=== PATIENT | female | born 1935 | race Caucasian/White ===

== ENCOUNTER 2020-11-27 12:50 | Inpatient (IN) | payer MEDICARE, SELFPAY ==
[2020-11-27] VITALS (25 sets, daily range): BP systolic 83–146; BP diastolic 31–127; PULSE 77–798; RESP 11–20; TEMP 35.3–36.9; O2SAT 90–100; BMI 27.5; BMI 26.9
--- NOTE | 2020-11-27 13:21 | EX.ED.DYSGE1 ---
HPI History of Present Illness Chief Complaint: Neuro S/Sx Informant: patient Onset/Context/Timing Onset: Weeks (1) Timing: Continuous Location: Throat and chest Current Severity: Severe Maximum Severity: Severe Worsened by: Swallowing Relieved by: Nothing Narrative Narrative: Patient presents with difficulty swallowing for the past week. Patient states that 1 week ago she coughed up a blood clot. Patient states that since that time she has been having difficulty swallowing. Patient states she has been unable to swallow any liquids. Patient states she has been having some generalized weakness and having difficulty ambulating. Patient also admits to cramping in her hands. Patient states she has pain in her throat and chest with swallowing. [facility] Medical History (Updated 11/27/20 @ 16:[address] Sony Elias, DO) Fatty liver Home Medications NK 11/27/20 [History Last Taken Unknown] Allergy/AdvReac Type Severity Reaction Status Date / Time Penicillins [PCN] Allergy Other Verified 11/27/20 12:54 Surgical History (Updated 11/27/20 @ 13:58 by Tl Wiley) History of tubal ligation Social History Smoking Status: Former smoker ROS ROS ED Constitutional Constitutional ED: Reports chills and subjective; Denies fever(s) Eyes Eyes: Reports blurry vision; Denies diplopia ENT ENT ED: Reports sore throat; Denies rhinorrhea Cardiovascular Cardiovascular: Reports chest pain; Denies palpitations Respiratory/Chest Respiratory/Chest: Reports cough and dyspnea Gastrointestinal Gastrointestinal: Reports nausea and vomiting Genitourinary Genitourinary ED: Denies dysuria or hematuria Musculoskeletal Musculoskeletal: Reports back pain and neck pain Integumentary Reports rash; Denies abscess Neurologic Neurologic: Reports paresthesias and weakness Allergic/Immunologic Allergic/Immunologic ED: Denies mouth swelling or urticaria EXAM Physical Exam Const Vital Signs: 11/27/20 12:56 11/27/20 13:01 11/27/20 14:02 Temperature 98.4 F 98.4 F 98.4 F Temperature Source Oral Oral Oral Pulse Rate 101 H 101 H 92 Respiratory Rate 14 11 L 17 Blood Pressure 134/65 H 134/65 H 86/56 L Blood Pressure Mean 88 88 66 Pulse Ox 100 98 97 Oxygen Delivery Method Room Air Room Air Room Air 11/27/20 14:54 11/27/20 15:02 11/27/20 15:44 Temperature 97.7 F L 97.7 F L 96.5 F L Temperature Source Oral Oral Core Pulse Rate 91 90 90 Respiratory Rate 17 14 19 H Blood Pressure 114/75 114/75 87/37 L Blood Pressure Mean 88 88 53 Pulse Ox 94 94 96 Oxygen Delivery Method Room Air Room Air Room Air 11/27/20 16:23 Temperature 96.4 F L Temperature Source Core Pulse Rate 89 Respiratory Rate 17 Blood Pressure 95/51 L Blood Pressure Mean 65 Pulse Ox 95 Oxygen Delivery Method Room Air Positive cachectic General Appearance ED: cachectic Nutritional Appearance: cachectic Neck supple and no JVD Resp normal respiratory effort and clear to auscultation bilaterally Cardio regular rate and regular rhythm GI Inspection: abdominal distention Palpation: tender epigastric, LLQ, RLQ, LUQ and RUQ and guarding Extremity General Extremety ED: Yes edema General Extremity: edema Neuro oriented x3, CN's II-XII intact bilaterally and no sensory deficits noted Sensorium / Orientation: alert Motor Exam: strength 5/5 throughout Psych Mood & Affect: depressed and anxious MDM MDM MDM Narrative Medical decision making narrative: CBC showed a mild leukocytosis of 12.8. Hemoglobin was 6.7 and hematocrit was 22.7. PT was slightly elevated at 15.9 INR is 1.3. PTT was normal. BUN is 59 creatinine is 3.55. These were elevated compared to previous results from 2015. Lactate was elevated at 3.1. Urinalysis shows leukocyte esterase of 100 with 10-25 white blood cells and 4+ bacteria. CT scan of the chest, abdomen, pelvis was obtained. There is diffuse ascites. There is evidence of cirrhosis. This was interpreted by the radiologist and reviewed by myself. Blood cultures and urine culture were ordered. Patient blood pressure did drop to 87/37 here in the emergency department. Patient was given a 30 cc/kg bolus which is currently infusing. Patient was started on Rocephin. Case was discussed with the hospitalist. He will admit the patient to ICU. He recommended consulting surgery because of the anemia and cirrhosis. Case was discussed with Dr. Elias. Since the patient is not actively bleeding, he agrees to admit the patient here. I went back in and talked with the patient and discussed resuscitation options. She states that if her heart were to stop that we should just let her go and be with her . Lab Data Attestation: I reviewed the patient's lab results. Labs: Laboratory Results - last 24 hr 11/27/20 11/27/20 11/27/20 13:53 13:53 13:53 WBC 12.8 H RBC 2.75 L Hgb 6.7 L Hct 22.7 L MCV 82.5 MCH 24.4 L MCHC 29.5 L RDW Std Deviation 55.0 H RDW Coeff of Arielle 18.6 H Plt Count 265 MPV 9.8 Immature Gran % (Auto) 0.400 Neut % (Auto) 43.9 L Lymph % (Auto) 14.3 L [place] % (Auto) 10.3 H Eos % (Auto) 30.3 H Baso % (Auto) 0.8 Absolute Neuts (auto) 5.6 Absolute Lymphs (auto) 1.82 Nucleated RBC % 0 Differential Comment COMMENT Diff Path Review May foll PT 15.9 H INR 1.3 APTT 29.2 Sodium 142 Potassium 3.6 Chloride 108 H Carbon Dioxide 25.0 Anion Gap 9 BUN 59 H Creatinine 3.55 H Estim Creat Clear Calc 10.19 Est GFR (MDRD) Af Amer 16 L Est GFR (MDRD) Non-Af 13 L BUN/Creatinine Ratio 16.6 Glucose 130 H Lactic Acid Calcium 8.7 Total Bilirubin 0.50 AST 29 ALT 15 Alkaline Phosphatase 170 H Ammonia Total Protein 6.1 L Albumin 2.0 L Globulin 4.1 Albumin/Globulin Ratio 0.5 L Lipase 271 Urine Color Urine Clarity Urine pH Ur Specific [place] Urine Protein Urine Glucose (UA) Urine Ketones Urine Occult Blood Urine Nitrite Urine Bilirubin Urine Urobilinogen Ur Leukocyte Esterase Urine RBC Urine WBC Ur Squamous Epith Cells Urine Bacteria Urine Mucus Crossmatch 11/27/20 11/27/20 11/27/20 13:53 15:10 15:40 WBC RBC Hgb Hct MCV MCH MCHC RDW Std Deviation RDW Coeff of Arielle Plt Count MPV Immature Gran % (Auto) Neut % (Auto) Lymph % (Auto) [place] % (Auto) Eos % (Auto) Baso % (Auto) Absolute Neuts (auto) Absolute Lymphs (auto) Nucleated RBC % Differential Comment Diff Path Review PT INR APTT Sodium Potassium Chloride Carbon Dioxide Anion Gap BUN Creatinine Estim Creat Clear Calc Est GFR (MDRD) Af Amer Est GFR (MDRD) Non-Af BUN/Creatinine Ratio Glucose Lactic Acid 3.1 H* Calcium Total Bilirubin AST ALT Alkaline Phosphatase Ammonia Total Protein Albumin Globulin Albumin/Globulin Ratio Lipase Urine Color Yellow Urine Clarity Sl. Cloudy Urine pH 5.0 Ur Specific [place] 1.025 Urine Protein 15 H Urine Glucose (UA) Normal Urine Ketones Negative Urine Occult Blood Negative Urine Nitrite Negative Urine Bilirubin Negative Urine Urobilinogen Normal Ur Leukocyte Esterase 100 H Urine RBC 0 SEEN Urine WBC 10-25 SEEN Ur Squamous Epith Cells 0 SEEN Urine Bacteria 4+ Urine Mucus 0 SEEN Crossmatch See Detail 11/27/20 15:40 WBC RBC Hgb Hct MCV MCH MCHC RDW Std Deviation RDW Coeff of Arielle Plt Count MPV Immature Gran % (Auto) Neut % (Auto) Lymph % (Auto) [place] % (Auto) Eos % (Auto) Baso % (Auto) Absolute Neuts (auto) Absolute Lymphs (auto) Nucleated RBC % Differential Comment Diff Path Review PT INR APTT Sodium Potassium Chloride Carbon Dioxide Anion Gap BUN Creatinine Estim Creat Clear Calc Est GFR (MDRD) Af Amer Est GFR (MDRD) Non-Af BUN/Creatinine Ratio Glucose Lactic Acid Calcium Total Bilirubin AST ALT Alkaline Phosphatase Ammonia 43.0 H Total Protein Albumin Globulin Albumin/Globulin Ratio Lipase Urine Color Urine Clarity Urine pH Ur Specific [place] Urine Protein Urine Glucose (UA) Urine Ketones Urine Occult Blood Urine Nitrite Urine Bilirubin Urine Urobilinogen Ur Leukocyte Esterase Urine RBC Urine WBC Ur Squamous Epith Cells Urine Bacteria Urine Mucus Crossmatch Radiography Diagnostic Testing: Radiology Impression Chest/Abdomen/Pelvis CT 11/27/20 14:28 IMPRESSION: Diffuse ascites. Findings suggestive of cirrhosis. Electronically Signed: Arnulfo Ahmadi MD at 15:09 EDT , Service support , Treatment and Re-Evaluation Vital Sign Attestation:: At time of admission, patient's blood pressure was improving. Patient was still receiving 30 cc/kg bolus and blood. Critical Care Time Critical Care Time: Yes Critical care time (excluding procedures): 30-74 minutes, Discussing w/Patient &/or Family/Rag Inspector, Discussing w/Consultants, Arranging Admission or Transfer and Performing Direct Patient Care at Bedside Discharge Plan Dx/Rx/DC Orders Clinical Impression: Septic shock, Acute kidney injury, Anemia, Urinary tract infection, Cirrhosis of liver, Acute hepatic encephalopathy Disposition Disposition: Acute Care Hospital [facility]
[2020-11-27] MEDS: 0.9% Normal Saline 1,000 ML 1000 ML IV (13:56)
[2020-11-27 14:04] LABS: Absolute Lymphocyte Count 1.82 X10^3/uL (0.83-4.51); Absolute Neutrophil Count 5.6 X10^3/uL (2.0-7.7); Basophil% 0.8 % (0-1); Eosinophils% 30.3 % (0-5); Hematocrit 22.7 % (37-47); Hemoglobin 6.7 g/dL (12.0-15.0); Lymphocyte # 1.82 X10^3/ul (0.83-4.51); Lymphocyte % 14.3 % (19-41); Mean Corp Hgb Conc 29.5 g/dL (32-36); Mean Corpuscular Hgb 24.4 pg (27.0-32.0); Mean Corpuscular Volume 82.5 fL (81-99); Mean Platelet Vol. 9.8 fl (6.2-12.0); Monocyte# 1.32 X10^3/uL; Monocyte% 10.3 % (0-10); NRBC Flagged by Analyzer 0 % (0-5); Neutrophil # 5.61 X10^3/uL (2.7-7.7); Neutrophil % 43.9 % (47-70); POSITIVE DIFFERENTIAL YES; Platelet Count 265 K/mm3 (150-450); RBC Distribution Width CV 18.6 % (11.6-14.6); Red Blood Count 2.75 M/mm3 (4.2-5.4); White Blood Count 12.8 K/mm3 (4.4-11.0)
[2020-11-27 14:15] LABS: International Normalized Ratio 1.3; Prothrombin Time (Protime)PT. 15.9 SECONDS (11.7-14.9)
[2020-11-27 14:16] LABS: Partial Thromboplast Time 29.2 Seconds (24.1-36.2)
[2020-11-27 14:21] LABS: ALB/GLOB Ratio 0.5 RATIO (0.9-2.4); AST(SGOT) 29 U/L (15-37); Alanine Aminotransfer ALT/SGPT 15 U/L (13-56); Alkaline Phosphatase 170 U/L (45-117); Anion Gap 9 (5-15); BUN 59 mg/dL (7-18); BUN/Creat Ratio 16.6 RATIO (10-20); Calcium,Total 8.7 mg/dL (8.5-10.1); Chloride 108 mmol/L (98-107); Creatinine, Serum 3.55 mg/dL (0.55-1.02); EST Glomerular Filtration Rate 13 mL/min (>60); Est Glom Filt Rate - Afr Amer 16 mL/min (>60); Estimated Creatinine Clearance 10.19 ml/min; Globulin 4.1 g/dL (2.2-4.2); Glucose 130 mg/dL (74-106); Lipase 271 U/L (73-393); Potassium 3.6 mmol/L (3.5-5.1); Protein, Total 6.1 g/dL (6.4-8.2); Sodium Level 142 mmol/L (136-145)
--- NOTE | 2020-11-27 14:28 | CT_ITS ---
STUDY: CT CHEST, ABDOMEN T PELVIS WITHOUT CONTRAST REASON FOR EXAM: Female, 85 years old. Chest pain. Dysphasia. Hemoptysis last week. RADIATION DOSAGE (If Supplied By Facility): CTDIvol = ( 20.81 ) mGy, DLP = ( 1755.96 ) mGycm TECHNIQUE: Transaxial imaging was performed without the administration of intravenous contrast material. Individualized dose optimization techniques were used for this CT. COMPARISON: No relevant priors. FINDINGS: CHEST Mild increased markings at the lung bases suggestive of atelectasis and/or scarring. Mild degree of the mosaic groundglass appearance in the lungs with focal area of sparing in the medial aspect of the left upper lobe. This may represent changes secondary to possible vascular congestion. There is no demonstrated pleural abnormality. There are calcifications of the coronary arteries. There are multiple small lymph nodes within the mediastinum, which are normal in size and morphology most compatible with reactive lymph hyperplasia. Normal hilar regions. Normal unenhanced pulmonary arteries. There is atherosclerotic calcification of the aortic arch with tortuosity and elongation of the aortic arch and descending thoracic aorta. There are multi-level degenerative changes of the thoracic spine. Increased kyphosis. Perisplenic and perihepatic fluid. Findings suggestive of cirrhosis of the liver. ABDOMEN Mild degree of increased markings at the lung bases. Coronary artery calcification. Diffuse ascites. There is a diffuse contour abnormality of the liver consistent with cirrhotic changes. Perihepatic and perisplenic fluid. Mild distention of the gallbladder. Normal spleen. There is diffuse atrophy of the pancreas. Normal bilateral adrenal glands. Normal right kidney. Normal left kidney. Normal visualized stomach. Normal small intestine. Normal colon. The appendix is visualized and appears normal. There is diffuse atherosclerotic calcification of the abdominal aorta, without a demonstrated aneurysm. Normal inferior vena cava. Normal retroperitoneum. Normal abdominal wall. There are diffuse degenerative changes of the visualized lumbar spine. PELVIS Normal urinary bladder. Diffuse ascites. Normal visualized small intestine. There are multiple colonic diverticula of the sigmoid colon consistent with chronic diverticulosis. There is no pelvic fluid. There is no pelvic lymphadenopathy or mass lesion. There is diffuse atherosclerotic calcification of the pelvic arteries. Diffuse subcutaneous edema. There are diffuse degenerative changes of the visualized lumbar spine. Osteoarthritis of both hip joints. CT/CT Chest, Abd, Pelvis WO Cont IMPRESSION: Diffuse ascites. Findings suggestive of cirrhosis. Electronically Signed: Arnulfo Ahmadi MD at 15:09 EDT , Service support ,
[2020-11-27 14:29] LABS: Differential Indicated SCAN CRITERIA MET; Eosinophil# 3.87 X10^3/uL
[2020-11-27 14:54] LABS: Lactic Acid 3.1 mmol/L (0.4-1.9)
[2020-11-27] MEDS: DiphenhydrAMINE 50 MG/ML Syringe 25 MG IV (14:56)
[2020-11-27 15:14] LABS: Mucous, Urine 0 SEEN /hpf (<or=2+); Red Blood Cells-Urine 0 SEEN /hpf (0-5); Squamous Epithelial Cells - UA 0 SEEN /hpf (5-10)
[2020-11-27 15:20] LABS: Color, Urine Yellow (Yellow); Glucose, Dipstick Normal (Normal); Ketone-Dipstick Negative (Negative); Leukocyte Esterase-Dipstick 100 /ul (Negative); Nitrite-Dipstick Negative (Negative); Occult Blood-Urine Negative /ul (Negative); Protein-Dipstick 15 mg/dl (Negative); Specific Gravity, Urine 1.025 (1.002-1.030); Urine Bilirubin Dipstick Negative (Negative); Urine Clarity Sl. Cloudy (Clear); Urine Urobilinogen Normal (Normal)
[2020-11-27 15:38] LABS: Bacteria 4+ /hpf (None Seen); White Blood Cells 10-25 SEEN /hpf (0-5)
[2020-11-27] MEDS: 0.9% Normal Saline 1,000 ML 999 ML IV (16:18)
--- NOTE | 2020-11-27 16:27 | NURSING ---
DR TANNER FOR DR JACKSON
--- NOTE | 2020-11-27 16:49 | NURSING ---
ICU 3 ASHELFAH SEPTIC SHOCK, UTI, ANEMIA, CIRRHOSIS, HEPATIC ENCEPHALOPATHY
[2020-11-27] MEDS: Ceftriaxone 1 GM/50 ML BAG IV (16:55)
[2020-11-27] MEDS: Lactulose 20 GM/30 ML UDC 10 GM PO (16:56)
--- NOTE | 2020-11-27 17:11 | HP.PCM.HOS_ITS ---
[facility] - General General Date of Admission: 11/27/20 Chief Complaint: Difficulty swallowing, weakness [facility] Narrative ALYSSIA GUO, is a 85 F with past medical history as mentioned above presented to the emergency room because of difficulty swallowing and weakness. Patient is a very poor informant and was not able to provide good history. She mentioned that she came to the ER today because of difficulty swallowing. She was not able to provide details about onset and duration of her symptoms. She complained of weakness of both upper extremities. She denied cough or sputum production. She denied chest pain or shortness of breath. She reported to the ER physician that she coughed up a blood clot 1 week ago and since then, she has been having this difficulty swallowing. She complained of throat pain along with the difficulty swallowing. She stated that she does have history of type 2 diabetes and she used to be on Metformin but she is not taking her medication nowadays. In the emergency department, she was afebrile, hypotensive but improved with IV fluids and her pulse ox was 96% on room air. Her routine blood work was remarkable for mild leukocytosis, hemoglobin of 6.7 g/dL, BUN is 59, creatinine is 2.55. LFT remarkable for alk phos of 170. Lactic acid 3.1. Urinalysis with cloudy urine, there was 100 leukocyte esterase, 10-25 WBCs and 4+ bacteria. CT scan abdomen and pelvis without contrast revealed diffuse ascites and findings suggestive of liver cirrhosis. Initially, patient was hypotensive, received IV fluids and her blood pressure improved. She is being admitted for severe sepsis due to UTI, severe anemia and acute renal failure. [facility] Medical History (Updated 11/27/20 @ 17:[address] Ward Craig MD) Fatty liver Home Medications NK 11/27/20 [History Last Taken Unknown] Allergy/AdvReac Type Severity Reaction Status Date / Time Penicillins [PCN] Allergy Other Verified 11/27/20 12:54 no significant family history Surgical History (Updated 11/27/20 @ 13:58 by Tl Wiley) History of tubal ligation Social History (Updated 11/27/20 @ 17:[address] Ward Craig MD) household members: none housing: other Smoking Status: Former smoker alcohol intake: never substance use type: does not use ROS Constitutional Constitutional: Reports anorexia and weakness; Denies chills, fatigue, fever(s) or malaise Eyes Eyes: Denies blurry vision, change in eye color, change in vision, double vision or eye pain ENT HEENT: Denies ear pain, epistaxis, headache(s), nasal congestion, post nasal drip or sore throat Cardiovascular Cardiovascular: Denies chest pain, dyspnea on exertion, edema, lightheadedness, orthopnea, palpitations, paroxysmal nocturnal dyspnea or syncope Respiratory/Chest Respiratory/Chest: Denies cough, dyspnea, hemoptysis, productive cough, shortness of breath at rest, shortness of breath with exertion or wheezing Gastrointestinal Gastrointestinal: Denies abdominal pain, constipation, diarrhea, hematemesis, hematochezia, melena, nausea or vomiting Genitourinary Genitourinary: Denies burning urination, dysuria, hematuria, urinary hesitancy or urinary urgency Musculoskeletal Musculoskeletal: Denies arthralgias, back pain, joint pain, joint swelling, myalgias or neck pain Neurologic Neurologic: Denies confusion, dizziness, focal weakness, headache(s), numbness, paresthesias, seizures, tingling or tremor(s) Psychiatric Psychiatric: Denies anxiety, depression, homicidal ideation or suicidal ideation Endocrine Endocrinology: Denies change in body appearance, cold intolerance, heat intolerance, polydipsia or polyuria Hematologic/Lymphatic Hematologic/Lymphatic: Reports other; Denies easy bleeding, easy bruising or lymphadenopathy Allergic/Immunologic Allergic/Immunologic: Denies itchy eyes, rhinitis, throat swelling, tongue swelling, hives, urticaria or wheezing Vital Signs Vital Signs Vital Signs: 11/27/20 12:56 11/27/20 13:01 11/27/20 14:02 Temperature 98.4 F 98.4 F 98.4 F Temperature Source Oral Oral Oral Pulse Rate 101 H 101 H 92 Respiratory Rate 14 11 L 17 Blood Pressure 134/65 H 134/65 H 86/56 L Blood Pressure Mean 88 88 66 Pulse Ox 100 98 97 Oxygen Delivery Method Room Air Room Air Room Air 11/27/20 14:54 11/27/20 15:02 11/27/20 15:44 Temperature 97.7 F L 97.7 F L 96.5 F L Temperature Source Oral Oral Core Pulse Rate 91 90 90 Respiratory Rate 17 14 19 H Blood Pressure 114/75 114/75 87/37 L Blood Pressure Mean 88 88 53 Pulse Ox 94 94 96 Oxygen Delivery Method Room Air Room Air Room Air 11/27/20 16:23 Temperature 96.4 F L Temperature Source Core Pulse Rate 88 Respiratory Rate 15 Blood Pressure 95/51 L Blood Pressure Mean 65 Pulse Ox 96 Oxygen Delivery Method Room Air Physical Exam Const alert, oriented x3 and no apparent distress General Appearance: cooperative HEENT normocephalic, head/scalp atraumatic and moist oral mucous membranes Mouth: moist mucous membranes abnormal Eyes PERRL, EOMs intact bilaterally and conjunctivae normal Neck no lymphadenopathy, supple, no JVD and no carotid bruits Resp normal respiratory effort and clear to auscultation bilaterally Auscultation: Negative for crackles, rales, rhonchi or wheezes Cardio regular rate, regular rhythm, S1 normal heart sound, S2 normal heart sound, no murmurs and no JVD Peripheral Pulses: pulses 2+ throughout GI normal to inspection, nondistended, normoactive bowel sounds, soft to palpation, non-tender and non-distended; Negative for hepatosplenomegaly Extremity normal to inspection and full ROM General Extremity: edema Peripheral Pulses: Yes pulses 2+ throughout Skin no rashes or lesions noted and no wounds Neuro oriented x3 and CN's II-XII intact bilaterally Sensorium / Orientation: alert Speech: speech normal Motor Exam: strength 5/5 throughout Psych mental status grossly normal and affect normal Lab / Micro Data Result Diagrams: 11/27/20 13:53 11/27/20 13:53 Labs: Laboratory Results - last 24 hr 11/27/20 11/27/20 11/27/20 13:53 13:53 13:53 WBC 12.8 H RBC 2.75 L Hgb 6.7 L Hct 22.7 L MCV 82.5 MCH 24.4 L MCHC 29.5 L RDW Std Deviation 55.0 H RDW Coeff of Arielle 18.6 H Plt Count 265 MPV 9.8 Immature Gran % (Auto) 0.400 Neut % (Auto) 43.9 L Lymph % (Auto) 14.3 L [place] % (Auto) 10.3 H Eos % (Auto) 30.3 H Baso % (Auto) 0.8 Absolute Neuts (auto) 5.6 Absolute Lymphs (auto) 1.82 Nucleated RBC % 0 Differential Comment COMMENT Diff Path Review May foll PT 15.9 H INR 1.3 APTT 29.2 Sodium 142 Potassium 3.6 Chloride 108 H Carbon Dioxide 25.0 Anion Gap 9 BUN 59 H Creatinine 3.55 H Estim Creat Clear Calc 10.19 Est GFR (MDRD) Af Amer 16 L Est GFR (MDRD) Non-Af 13 L BUN/Creatinine Ratio 16.6 Glucose 130 H Lactic Acid Calcium 8.7 Total Bilirubin 0.50 AST 29 ALT 15 Alkaline Phosphatase 170 H Ammonia Total Protein 6.1 L Albumin 2.0 L Globulin 4.1 Albumin/Globulin Ratio 0.5 L Lipase 271 Urine Color Urine Clarity Urine pH Ur Specific [place] Urine Protein Urine Glucose (UA) Urine Ketones Urine Occult Blood Urine Nitrite Urine Bilirubin Urine Urobilinogen Ur Leukocyte Esterase Urine RBC Urine WBC Ur Squamous Epith Cells Urine Bacteria Urine Mucus Crossmatch 11/27/20 11/27/20 11/27/20 13:53 15:10 15:40 WBC RBC Hgb Hct MCV MCH MCHC RDW Std Deviation RDW Coeff of Arielle Plt Count MPV Immature Gran % (Auto) Neut % (Auto) Lymph % (Auto) [place] % (Auto) Eos % (Auto) Baso % (Auto) Absolute Neuts (auto) Absolute Lymphs (auto) Nucleated RBC % Differential Comment Diff Path Review PT INR APTT Sodium Potassium Chloride Carbon Dioxide Anion Gap BUN Creatinine Estim Creat Clear Calc Est GFR (MDRD) Af Amer Est GFR (MDRD) Non-Af BUN/Creatinine Ratio Glucose Lactic Acid 3.1 H* Calcium Total Bilirubin AST ALT Alkaline Phosphatase Ammonia Total Protein Albumin Globulin Albumin/Globulin Ratio Lipase Urine Color Yellow Urine Clarity Sl. Cloudy Urine pH 5.0 Ur Specific [place] 1.025 Urine Protein 15 H Urine Glucose (UA) Normal Urine Ketones Negative Urine Occult Blood Negative Urine Nitrite Negative Urine Bilirubin Negative Urine Urobilinogen Normal Ur Leukocyte Esterase 100 H Urine RBC 0 SEEN Urine WBC 10-25 SEEN Ur Squamous Epith Cells 0 SEEN Urine Bacteria 4+ Urine Mucus 0 SEEN Crossmatch See Detail 11/27/20 15:40 WBC RBC Hgb Hct MCV MCH MCHC RDW Std Deviation RDW Coeff of Arielle Plt Count MPV Immature Gran % (Auto) Neut % (Auto) Lymph % (Auto) [place] % (Auto) Eos % (Auto) Baso % (Auto) Absolute Neuts (auto) Absolute Lymphs (auto) Nucleated RBC % Differential Comment Diff Path Review PT INR APTT Sodium Potassium Chloride Carbon Dioxide Anion Gap BUN Creatinine Estim Creat Clear Calc Est GFR (MDRD) Af Amer Est GFR (MDRD) Non-Af BUN/Creatinine Ratio Glucose Lactic Acid Calcium Total Bilirubin AST ALT Alkaline Phosphatase Ammonia 43.0 H Total Protein Albumin Globulin Albumin/Globulin Ratio Lipase Urine Color Urine Clarity Urine pH Ur Specific [place] Urine Protein Urine Glucose (UA) Urine Ketones Urine Occult Blood Urine Nitrite Urine Bilirubin Urine Urobilinogen Ur Leukocyte Esterase Urine RBC Urine WBC Ur Squamous Epith Cells Urine Bacteria Urine Mucus Crossmatch Micro: Microbiology 11/27/20 13:50 SARS-CoV-2 Antigen (Rapid) - Final Nasal Secretion Radiology Impression Chest/Abdomen/Pelvis CT 11/27/20 14:28 IMPRESSION: Diffuse ascites. Findings suggestive of cirrhosis. Electronically Signed: Arnulfo Ahmadi MD at 15:09 EDT , Service support , Assessment & Plan Assessment/Plan (1) Severe sepsis: Status: Acute Code(s): A41.9 - Sepsis, unspecified organism; R65.20 - Severe sepsis without septic shock (2) Acute kidney injury: Status: Acute Code(s): N17.9 - Acute kidney failure, unspecified (3) Anemia: Status: Acute Code(s): D64.9 - Anemia, unspecified (4) Urinary tract infection: Status: Acute Code(s): N39.0 - Urinary tract infection, site not specified (5) Cirrhosis of liver: Status: Acute Code(s): K74.60 - Unspecified cirrhosis of liver Plan: This is a 85 years old female patient presented to the medicine because of diff erent complaints including difficulty swallowing, weakness and she was found to have severe sepsis secondary to acute cystitis as well as acute anemia and acute renal failure, found to have liver cirrhosis on CT scan abdomen and her ammonia is elevated. #1 severe sepsis/acute cystitis: Lactic acid 3.1. Patient was hypotensive, responded to IV fluids and her blood pressure improved. Plan: Admit to ICU, complete bedrest, blood culture, urine culture, start IV Rocephin, IV fluids, critical care consult, Tylenol as needed, Zofran as needed, repeat CBC and CMP tomorrow morning, PT OT evaluation and treatment. #2 acute renal failure: Likely due to severe sepsis. Only kidney function for the patient in the chart was from June,, creatinine was 0.77. Plan: IV fluids, input output chart, avoid nephrotoxic drugs, repeat CMP tomorrow morning. #3 acute severe anemia: Patient denied active bleeding. It is normocytic anemia. Hemoglobin was 11.7 on June,. Plan: Transfused treatment of packed RBCs, iron studies, serum ferritin, stool for occult blood, general surgery consult, start IV Protonix twice daily, repeat CBC tomorrow morning. #4 liver cirrhosis/hyperammonemia: Patient denies drinking alcohol. CT scan abdomen and pelvis reviewed as above. She is alert and related x3. She does have diffuse ascites. Plan: Start lactulose twice daily, patient will need foll ow-up with GI as outpatient. #5 difficulty swallowing: Plan for speech therapy evaluation and treatment. #6 history of type 2 diabetes mellitus: She stated that she had a history of type 2 diabetes mellitus has been on Metformin but she is not taking it since her . Plan: Accu-Cheks, sliding scale, check hemoglobin A1c. # 7 CODE STATUS: DNR CCA, no intubation. I discussed the different types of CODE STATUS with the patient including full code, DNR CC, DNR CCA with and without intubation. Patient clearly mentioned that she does not want any life- sustaining measures, no CPR, no chest compressions, no intubation and mechanical ventilation. #8 DVT prophylaxis: SCDs. This note was generated with [employer] dictation software. It may contain incorrect words, spelling, and punctuation that were not noted in checking the note before signing. Inpatient E&M: 36828 Init Hosp L3 Procedures: 23900 Advncd Care Plan 30 Min (Time spent discussing CODE STATUS with the patient is 12 minutes.)
--- NOTE | 2020-11-27 17:57 | ED.RN ---
called report to [facility]
[2020-11-27 18:00] LABS: Reflex Lactate? Y
--- NOTE | 2020-11-27 19:15 | NURSING ---
pt arrived to ICU room 3 from ED with PRBC running wide open. Pt A&Ox3 with some abd discomfort.
[2020-11-27 19:46] LABS: Iron Binding Capacity,Total 271 ug/dL (250-450)
[2020-11-27 19:55] LABS: Ferritin 18 ng/mL (8-252)
--- NOTE | 2020-11-27 20:23 | US_ITS ---
STUDY: ABDOMINAL ULTRASOUND REASON FOR EXAM: Female, 85 years old. ASCITES TECHNIQUE: Transabdominal ultrasound was performed with real-time and static jarvis scale imaging. TECHNICAL QUALITY: Limited. Examination limited due to the patient?s condition. COMPARISON: Comparison is made with prior CT scan of the abdomen done earlier today. FINDINGS: Liver: The liver measures 13.9 cm. There is normal echogenicity of the liver. The bile ducts are within normal limits. There is hepatic color flow. The direction of portal flow is hepatopetal. There is no demonstrated mass lesion. Portal vein measurement: Gallbladder: Normal distended gallbladder. The gallbladder wall measures 4 mm. There is a negative sonographic Dunn''s sign. There is pericholecystic fluid. Sludge is seen within the gallbladder lumen. Common Bile Duct (C.B.D.): The common bile duct measures 4 mm. Pancreas: There is nonvisualization of the pancreas due to overlying bowel gas. Spleen: Normal size of the spleen. The spleen measures 12.1 cm x 4.8 cm x 4.9 cm. Right Kidney: There is atrophy of the right kidney. The right kidney measures 6.1 cm x 4.4 cm x 3.2 cm. There is thinning of the renal cortex. The right cortex measures 0.6 cm. There is no demonstrated renal mass or cyst. There is no right hydronephrosis. Left Kidney: Normal size of the left kidney. The left kidney measures 9 cm x 4.7 cm x 4.6 cm. Normal renal cortex. The left cortex measures 1.0 cm. There is no demonstrated renal mass or cyst. There is no left hydronephrosis. Aorta: Not visualized Diffuse ascites US/Abdomen Complete IMPRESSION: Diffuse ascites. Electronically Signed: Arnulfo Ahmadi MD at 8:16 EDT , Service support ,
--- NOTE | 2020-11-27 20:40 | ED.RN ---
pt given 2 liters of fluid for fluid resuscitation protocol for 30ml per kg. pt should receive 2100ml.
[2020-11-27 20:43] LABS: Hemoglobin A1c < 6.0 % (3.8-5.6)
[2020-11-27 22:55] LABS: Bedside Glucose 101 mg/dL (70-110)
[2020-11-27] MEDS: Lactulose 20 GM/30 ML UDC PO (23:25)
[2020-11-28] VITALS (16 sets, daily range): BP systolic 99–116; BP diastolic 31–57; PULSE 81–98; RESP 14–22; TEMP 36.2–37.2; O2SAT 93–100
[2020-11-28] MEDS: 0.9% Normal Saline 1,000 ML 100 ML IV (00:15)
[2020-11-28] MEDS: Furosemide 20 MG/2 ML VIAL IV ×3 (01:19→18:19)
[2020-11-28] MEDS: 0.9% Saline Lock 10 ML Syringe IV (01:20)
[2020-11-28 04:24] LABS: Absolute Lymphocyte Count 1.21 X10^3/uL (0.83-4.51); Absolute Neutrophil Count 4.6 X10^3/uL (2.0-7.7); Basophil# 0.09 X10^3/uL; Basophil% 0.9 % (0-1); Eosinophils% 28.8 % (0-5); Hematocrit 29.6 % (37-47); Hemoglobin 9.4 g/dL (12.0-15.0); Lymphocyte # 1.21 X10^3/ul (0.83-4.51); Lymphocyte % 12.4 % (19-41); Mean Corp Hgb Conc 31.8 g/dL (32-36); Mean Corpuscular Hgb 26.8 pg (27.0-32.0); Mean Corpuscular Volume 84.3 fL (81-99); Mean Platelet Vol. 9.2 fl (6.2-12.0); Monocyte% 10.3 % (0-10); NRBC Flagged by Analyzer 0 % (0-5); Neutrophil # 4.61 X10^3/uL (2.7-7.7); Neutrophil % 47.3 % (47-70); POSITIVE DIFFERENTIAL YES; Platelet Count 177 K/mm3 (150-450); RBC Distribution Width CV 16.7 % (11.6-14.6); RBC Distribution Width SD 51.3 fl (35.1-43.9); Red Blood Count 3.51 M/mm3 (4.2-5.4); White Blood Count 9.8 K/mm3 (4.4-11.0)
[2020-11-28 04:29] LABS: Eosinophil# 2.81 X10^3/uL
[2020-11-28 04:30] LABS: Differential Indicated SCAN CRITERIA MET
[2020-11-28 04:35] LABS: International Normalized Ratio 1.4; Prothrombin Time (Protime)PT. 16.3 SECONDS (11.7-14.9)
[2020-11-28 04:44] LABS: ALB/GLOB Ratio 0.5 RATIO (0.9-2.4); AST(SGOT) 29 U/L (15-37); Alanine Aminotransfer ALT/SGPT 11 U/L (13-56); Albumin, Serum 1.7 g/dL (3.2-5.0); Alkaline Phosphatase 126 U/L (45-117); Anion Gap 7 (5-15); BUN 55 mg/dL (7-18); BUN/Creat Ratio 17.2 RATIO (10-20); Calcium,Total 7.9 mg/dL (8.5-10.1); Chloride 111 mmol/L (98-107); EST Glomerular Filtration Rate 15 mL/min (>60); Est Glom Filt Rate - Afr Amer 18 mL/min (>60); Globulin 3.7 g/dL (2.2-4.2); Glucose 92 mg/dL (74-106); Potassium 3.4 mmol/L (3.5-5.1); Protein, Total 5.4 g/dL (6.4-8.2); Sodium Level 143 mmol/L (136-145)
[2020-11-28 04:50] LABS: Differential Comment SCANNED
[2020-11-28 04:51] LABS: Lactic Acid 1.8 mmol/L (0.4-1.9)
[2020-11-28] MEDS: 0.9% Normal Saline 1,000 ML IV (06:27)
--- NOTE | 2020-11-28 06:47 | CON.PCM.SX_ITS ---
Assessment & Plan Assessment/Plan (1) Anemia: Status: Acute Code(s): D64.9 - Anemia, unspecified Qualifiers: Anemia type: unspecified type Qualified Code(s): D64.9 - Anemia, unspecified (2) Cirrhosis of liver: Status: Acute Code(s): K74.60 - Unspecified cirrhosis of liver Qualifiers: Hepatic cirrhosis type: unspecified hepatic cirrhosis Ascites presence: with ascites Qualified Code(s): K74.60 - Unspecified cirrhosis of liver; R18.8 - Other ascites Plan: The patient presented with anemia and a hemoglobin of 6 with no iron deficiency. The patient reports that she did cough up blood clot recently but she is not having any gross blood in her stool. She had a normal bowel movement overnight with no blood. Patient is also Hemoccult positive. The patient was admitted for sepsis and UTI. I reviewed the patient's CT scan which shows diffuse ascites and evidence of a cirrhotic liver. The patient's liver enzymes are normal and she is alert and oriented x3 although she does have a very elevated ammonia level. The patient's anemia and positive fecal occult blood are likely due to gastritis and she has been started on a PPI. Given her age and cirrhosis I think an EGD would be very high risk. The patient needs to establish care with a GI doctor due to her cir rhosis and I believe the GI doctor should perform EGD. Unless she starts having gross blood and hemoglobin is unstable I would recommend that the EGD be performed by GI doctor electively. If she is unable to tolerate a diet or if she has active GI bleeding such as melena or coffee-ground emesis I would perform an EGD emergently. Continue PPI and okay for diet from my standpoint. Continue checking H&H. Meño Elias MD Pager: [facility] [address] [place] [address], [address] [place] [address] Office: HPI Consult Data Date of Consult: 11/28/20 HPI Narrative HPI Narrative: ALYSSIA GUO, is a 85 F who presents to the emergency room with anemia, abdominal distention. The patient has not noticed any gross blood in her stool. She does not know that she has cirrhosis and says that she has a fatty liver. She is not complaining of any abdominal pain. She reports that she spit up a blood clot about a week ago. She is not having any nausea or vomiting. She did describe some difficulty swallowing. She feels very itchy and is scratching so much that she is bleeding. [facility] Medical History (Updated 11/28/20 @ 06:[address] Meño Elias MD) Fatty liver Home Medications NK 11/27/20 [History Last Taken Unknown] Allergy/AdvReac Type Severity Reaction Status Date / Time Penicillins [PCN] Allergy Other Verified 11/27/20 12:54 Surgical History (Updated 11/27/20 @ 13:58 by Tl Wiley) History of tubal ligation Social History (Updated 11/27/20 @ 17:[address] Ward Craig MD) household members: none housing: other Smoking Status: Former smoker alcohol intake: never substance use type: does not use ROS Constitutional Constitutional: Reports chills; Denies anorexia or fatigue ENT HEENT: Reports dysphagia Respiratory/Chest Respiratory/Chest: Denies cough or dyspnea Gastrointestinal Gastrointestinal: Reports bloating and dysphagia; Denies abdominal pain, diarrhea, hematemesis, hematochezia, melena, nausea, rectal bleeding or vomiting Musculoskeletal Musculoskeletal: Reports systems reviewed and no addt'l complaints, except as documented Integumentary Integumentary: Reports other Details: Severe itching Psychiatric Psychiatric: Reports systems reviewed and no addt'l complaints, except as documented Hematologic/Lymphatic Hematologic/Lymphatic: Reports systems reviewed and no addt'l complaints, except as documented Physical Exam Const alert and oriented x3 General Appearance: cooperative HEENT normocephalic Eyes PERRL Neck no JVD Chest inspection of chest normal Resp normal respiratory effort Cardio Rate: regular rate Rhythm: regular rhythm GI Inspection: abdominal distention Palpation: ascites; Negative for tender or guarding Skin no jaundice Skin Narrative: The patient has several areas of bleeding on her skin due to scratching herself because of severe itching Neuro CN's II-XII intact bilaterally Lab / Micro Data Result Diagrams: 11/28/20 04:15 11/28/20 04:15 Labs: Laboratory Results - last 24 hr 11/27/20 11/27/20 11/27/20 13:53 13:53 13:53 WBC 12.8 H RBC 2.75 L Hgb 6.7 L Hct 22.7 L MCV 82.5 MCH 24.4 L MCHC 29.5 L RDW Std Deviation 55.0 H RDW Coeff of Arielle 18.6 H Plt Count 265 MPV 9.8 Immature Gran % (Auto) 0.400 Neut % (Auto) 43.9 L Lymph % (Auto) 14.3 L [place] % (Auto) 10.3 H Eos % (Auto) 30.3 H Baso % (Auto) 0.8 Absolute Neuts (auto) 5.6 Absolute Lymphs (auto) 1.82 Nucleated RBC % 0 Differential Comment COMMENT Diff Path Review May foll PT 15.9 H INR 1.3 APTT 29.2 Sodium 142 Potassium 3.6 Chloride 108 H Carbon Dioxide 25.0 Anion Gap 9 BUN 59 H Creatinine 3.55 H Estim Creat Clear Calc 10.19 Est GFR (MDRD) Af Amer 16 L Est GFR (MDRD) Non-Af 13 L BUN/Creatinine Ratio 16.6 Glucose 130 H Hemoglobin A1c Lactic Acid Calcium 8.7 TIBC Ferritin Total Bilirubin 0.50 AST 29 ALT 15 Alkaline Phosphatase 170 H Ammonia Total Protein 6.1 L Albumin 2.0 L Globulin 4.1 Albumin/Globulin Ratio 0.5 L Lipase 271 Urine Color Urine Clarity Urine pH Ur Specific [place] Urine Protein Urine Glucose (UA) Urine Ketones Urine Occult Blood Urine Nitrite Urine Bilirubin Urine Urobilinogen Ur Leukocyte Esterase Urine RBC Urine WBC Ur Squamous Epith Cells Urine Bacteria Urine Mucus POC Glucose Blood Type Antibody Screen Crossmatch 11/27/20 11/27/20 11/27/20 13:53 13:53 13:53 WBC RBC Hgb Hct MCV MCH MCHC RDW Std Deviation RDW Coeff of Arielle Plt Count MPV Immature Gran % (Auto) Neut % (Auto) Lymph % (Auto) [place] % (Auto) Eos % (Auto) Baso % (Auto) Absolute Neuts (auto) Absolute Lymphs (auto) Nucleated RBC % Differential Comment Diff Path Review PT INR APTT Sodium Potassium Chloride Carbon Dioxide Anion Gap BUN Creatinine Estim Creat Clear Calc Est GFR (MDRD) Af Amer Est GFR (MDRD) Non-Af BUN/Creatinine Ratio Glucose Hemoglobin A1c < 6.0 H Lactic Acid 3.1 H* Calcium TIBC 271 Ferritin Total Bilirubin AST ALT Alkaline Phosphatase Ammonia Total Protein Albumin Globulin Albumin/Globulin Ratio Lipase Urine Color Urine Clarity Urine pH Ur Specific [place] Urine Protein Urine Glucose (UA) Urine Ketones Urine Occult Blood Urine Nitrite Urine Bilirubin Urine Urobilinogen Ur Leukocyte Esterase Urine RBC Urine WBC Ur Squamous Epith Cells Urine Bacteria Urine Mucus POC Glucose Blood Type Antibody Screen Crossmatch 11/27/20 11/27/20 11/27/20 13:53 15:10 15:40 WBC RBC Hgb Hct MCV MCH MCHC RDW Std Deviation RDW Coeff of Arielle Plt Count MPV Immature Gran % (Auto) Neut % (Auto) Lymph % (Auto) [place] % (Auto) Eos % (Auto) Baso % (Auto) Absolute Neuts (auto) Absolute Lymphs (auto) Nucleated RBC % Differential Comment Diff Path Review PT INR APTT Sodium Potassium Chloride Carbon Dioxide Anion Gap BUN Creatinine Estim Creat Clear Calc Est GFR (MDRD) Af Amer Est GFR (MDRD) Non-Af BUN/Creatinine Ratio Glucose Hemoglobin A1c Lactic Acid Calcium TIBC Ferritin 18 Total Bilirubin AST ALT Alkaline Phosphatase Ammonia Total Protein Albumin Globulin Albumin/Globulin Ratio Lipase Urine Color Yellow Urine Clarity Sl. Cloudy Urine pH 5.0 Ur Specific [place] 1.025 Urine Protein 15 H Urine Glucose (UA) Normal Urine Ketones Negative Urine Occult Blood Negative Urine Nitrite Negative Urine Bilirubin Negative Urine Urobilinogen Normal Ur Leukocyte Esterase 100 H Urine RBC 0 SEEN Urine WBC 10-25 SEEN Ur Squamous Epith Cells 0 SEEN Urine Bacteria 4+ Urine Mucus 0 SEEN POC Glucose Blood Type O NEGATIVE Antibody Screen NEGATIVE Crossmatch See Detail 11/27/20 11/27/20 11/27/20 15:40 15:40 22:49 WBC RBC Hgb Hct MCV MCH MCHC RDW Std Deviation RDW Coeff of Arielle Plt Count MPV Immature Gran % (Auto) Neut % (Auto) Lymph % (Auto) [place] % (Auto) Eos % (Auto) Baso % (Auto) Absolute Neuts (auto) Absolute Lymphs (auto) Nucleated RBC % Differential Comment Diff Path Review PT INR APTT Sodium Potassium Chloride Carbon Dioxide Anion Gap BUN Creatinine Estim Creat Clear Calc Est GFR (MDRD) Af Amer Est GFR (MDRD) Non-Af BUN/Creatinine Ratio Glucose Hemoglobin A1c Lactic Acid Calcium TIBC Ferritin Total Bilirubin AST ALT Alkaline Phosphatase Ammonia 43.0 H Total Protein Albumin Globulin Albumin/Globulin Ratio Lipase Urine Color Urine Clarity Urine pH Ur Specific [place] Urine Protein Urine Glucose (UA) Urine Ketones Urine Occult Blood Urine Nitrite Urine Bilirubin Urine Urobilinogen Ur Leukocyte Esterase Urine RBC Urine WBC Ur Squamous Epith Cells Urine Bacteria Urine Mucus POC Glucose 101 Blood Type Antibody Screen Crossmatch See Detail 11/28/20 11/28/20 11/28/20 04:15 04:15 04:15 WBC 9.8 RBC 3.51 L Hgb 9.4 L Hct 29.6 L MCV 84.3 MCH 26.8 L MCHC 31.8 L D RDW Std Deviation 51.3 H RDW Coeff of Arielle 16.7 H Plt Count 177 MPV 9.2 Immature Gran % (Auto) 0.300 Neut % (Auto) 47.3 Lymph % (Auto) 12.4 L [place] % (Auto) 10.3 H Eos % (Auto) 28.8 H Baso % (Auto) 0.9 Absolute Neuts (auto) 4.6 Absolute Lymphs (auto) 1.21 Nucleated RBC % 0 Differential Comment SCANNED Diff Path Review May foll PT 16.3 H INR 1.4 APTT Sodium 143 Potassium 3.4 L Chloride 111 H Carbon Dioxide 25.0 Anion Gap 7 BUN 55 H Creatinine 3.20 H Estim Creat Clear Calc 11.30 Est GFR (MDRD) Af Amer 18 L Est GFR (MDRD) Non-Af 15 L BUN/Creatinine Ratio 17.2 Glucose 92 Hemoglobin A1c Lactic Acid Calcium 7.9 L TIBC Ferritin Total Bilirubin 1.20 H AST 29 ALT 11 L Alkaline Phosphatase 126 H Ammonia Total Protein 5.4 L Albumin 1.7 L Globulin 3.7 Albumin/Globulin Ratio 0.5 L Lipase Urine Color Urine Clarity Urine pH Ur Specific [place] Urine Protein Urine Glucose (UA) Urine Ketones Urine Occult Blood Urine Nitrite Urine Bilirubin Urine Urobilinogen Ur Leukocyte Esterase Urine RBC Urine WBC Ur Squamous Epith Cells Urine Bacteria Urine Mucus POC Glucose Blood Type Antibody Screen Crossmatch 11/28/20 11/28/20 04:15 04:15 WBC RBC Hgb Hct MCV MCH MCHC RDW Std Deviation RDW Coeff of Arielle Plt Count MPV Immature Gran % (Auto) Neut % (Auto) Lymph % (Auto) [place] % (Auto) Eos % (Auto) Baso % (Auto) Absolute Neuts (auto) Absolute Lymphs (auto) Nucleated RBC % Differential Comment Diff Path Review PT INR APTT Sodium Potassium Chloride Carbon Dioxide Anion Gap BUN Creatinine Estim Creat Clear Calc Est GFR (MDRD) Af Amer Est GFR (MDRD) Non-Af BUN/Creatinine Ratio Glucose Hemoglobin A1c Lactic Acid 1.8 Calcium TIBC Ferritin Total Bilirubin AST ALT Alkaline Phosphatase Ammonia 67.0 H Total Protein Albumin Globulin Albumin/Globulin Ratio Lipase Urine Color Urine Clarity Urine pH Ur Specific [place] Urine Protein Urine Glucose (UA) Urine Ketones Urine Occult Blood Urine Nitrite Urine Bilirubin Urine Urobilinogen Ur Leukocyte Esterase Urine RBC Urine WBC Ur Squamous Epith Cells Urine Bacteria Urine Mucus POC Glucose Blood Type Antibody Screen Crossmatch Micro: Microbiology 11/27/20 20:00 Stool Occult Blood (BONI) - Final Stool Occult Blood Positive 11/27/20 13:50 SARS-CoV-2 Antigen (Rapid) - Final Nasal Secretion Radiology Impression Chest/Abdomen/Pelvis CT 11/27/20 14:28 IMPRESSION: Diffuse ascites. Findings suggestive of cirrhosis. Electronically Signed: Arnulfo Ahmadi MD at 15:09 EDT , Service support ,
[2020-11-28] MEDS: Potassium Chloride 10mEq/100mL 10 MEQ/100 ML IV.SOLN. 100 MEQ IV BOLUS ×2 (07:08→08:58)
--- NOTE | 2020-11-28 08:24 | PCM.PN.HOSP ---
Subjective Subjective: Patient was seen and examined. No evidence of bleeding overnight. She was transfused 3 units of packed RBC. No other acute events. She denied any dizziness or chest pain or palpitation. Objective Data Objective Data Vital Signs: Vital Signs Temp Pulse Resp BP Pulse Ox 97.2 F L 83 16 114/38 L 97 11/28/20 08:16 11/28/20 08:16 11/28/20 08:16 11/28/20 08:16 11/28/20 08:16 Oxygen Delivery Method Room Air Weight: 72.7 kg Body Mass Index (BMI) 26.9 Finger Stick Blood Glucose 130 Intake & Output: Intake and Output for Last 24 Hours 11/26/20 11/27/20 11/28/20 23:59 23:59 23:59 Intake Total 2960 / 2960 1020 / 1020 Output Total 400 / 400 350 / 350 Balance 2560 / 2560 670 / 670 Lab / Micro Data Result Diagrams: 11/28/20 04:15 11/28/20 04:15 Labs: Laboratory Results - last 24 hr 11/27/20 11/27/20 11/27/20 13:53 13:53 13:53 WBC 12.8 H RBC 2.75 L Hgb 6.7 L Hct 22.7 L MCV 82.5 MCH 24.4 L MCHC 29.5 L RDW Std Deviation 55.0 H RDW Coeff of Arielle 18.6 H Plt Count 265 MPV 9.8 Immature Gran % (Auto) 0.400 Neut % (Auto) 43.9 L Lymph % (Auto) 14.3 L [place] % (Auto) 10.3 H Eos % (Auto) 30.3 H Baso % (Auto) 0.8 Absolute Neuts (auto) 5.6 Absolute Lymphs (auto) 1.82 Nucleated RBC % 0 Differential Comment COMMENT Diff Path Review November foll PT 15.9 H INR 1.3 APTT 29.2 Sodium 142 Potassium 3.6 Chloride 108 H Carbon Dioxide 25.0 Anion Gap 9 BUN 59 H Creatinine 3.55 H Estim Creat Clear Calc 10.19 Est GFR (MDRD) Af Amer 16 L Est GFR (MDRD) Non-Af 13 L BUN/Creatinine Ratio 16.6 Glucose 130 H Hemoglobin A1c Lactic Acid Calcium 8.7 TIBC Ferritin Total Bilirubin 0.50 AST 29 ALT 15 Alkaline Phosphatase 170 H Ammonia Total Protein 6.1 L Albumin 2.0 L Globulin 4.1 Albumin/Globulin Ratio 0.5 L Lipase 271 Urine Color Urine Clarity Urine pH Ur Specific [place] Urine Protein Urine Glucose (UA) Urine Ketones Urine Occult Blood Urine Nitrite Urine Bilirubin Urine Urobilinogen Ur Leukocyte Esterase Urine RBC Urine WBC Ur Squamous Epith Cells Urine Bacteria Urine Mucus POC Glucose Blood Type Antibody Screen Crossmatch 11/27/20 11/27/20 11/27/20 13:53 13:53 13:53 WBC RBC Hgb Hct MCV MCH MCHC RDW Std Deviation RDW Coeff of Arielle Plt Count MPV Immature Gran % (Auto) Neut % (Auto) Lymph % (Auto) [place] % (Auto) Eos % (Auto) Baso % (Auto) Absolute Neuts (auto) Absolute Lymphs (auto) Nucleated RBC % Differential Comment Diff Path Review PT INR APTT Sodium Potassium Chloride Carbon Dioxide Anion Gap BUN Creatinine Estim Creat Clear Calc Est GFR (MDRD) Af Amer Est GFR (MDRD) Non-Af BUN/Creatinine Ratio Glucose Hemoglobin A1c < 6.0 H Lactic Acid 3.1 H* Calcium TIBC 271 Ferritin Total Bilirubin AST ALT Alkaline Phosphatase Ammonia Total Protein Albumin Globulin Albumin/Globulin Ratio Lipase Urine Color Urine Clarity Urine pH Ur Specific [place] Urine Protein Urine Glucose (UA) Urine Ketones Urine Occult Blood Urine Nitrite Urine Bilirubin Urine Urobilinogen Ur Leukocyte Esterase Urine RBC Urine WBC Ur Squamous Epith Cells Urine Bacteria Urine Mucus POC Glucose Blood Type Antibody Screen Crossmatch 11/27/20 11/27/20 11/27/20 13:53 15:10 15:40 WBC RBC Hgb Hct MCV MCH MCHC RDW Std Deviation RDW Coeff of Arielle Plt Count MPV Immature Gran % (Auto) Neut % (Auto) Lymph % (Auto) [place] % (Auto) Eos % (Auto) Baso % (Auto) Absolute Neuts (auto) Absolute Lymphs (auto) Nucleated RBC % Differential Comment Diff Path Review PT INR APTT Sodium Potassium Chloride Carbon Dioxide Anion Gap BUN Creatinine Estim Creat Clear Calc Est GFR (MDRD) Af Amer Est GFR (MDRD) Non-Af BUN/Creatinine Ratio Glucose Hemoglobin A1c Lactic Acid Calcium TIBC Ferritin 18 Total Bilirubin AST ALT Alkaline Phosphatase Ammonia Total Protein Albumin Globulin Albumin/Globulin Ratio Lipase Urine Color Yellow Urine Clarity Sl. Cloudy Urine pH 5.0 Ur Specific [place] 1.025 Urine Protein 15 H Urine Glucose (UA) Normal Urine Ketones Negative Urine Occult Blood Negative Urine Nitrite Negative Urine Bilirubin Negative Urine Urobilinogen Normal Ur Leukocyte Esterase 100 H Urine RBC 0 SEEN Urine WBC 10-25 SEEN Ur Squamous Epith Cells 0 SEEN Urine Bacteria 4+ Urine Mucus 0 SEEN POC Glucose Blood Type O NEGATIVE Antibody Screen NEGATIVE Crossmatch See Detail 11/27/20 11/27/20 11/27/20 15:40 15:40 22:49 WBC RBC Hgb Hct MCV MCH MCHC RDW Std Deviation RDW Coeff of Arielle Plt Count MPV Immature Gran % (Auto) Neut % (Auto) Lymph % (Auto) [place] % (Auto) Eos % (Auto) Baso % (Auto) Absolute Neuts (auto) Absolute Lymphs (auto) Nucleated RBC % Differential Comment Diff Path Review PT INR APTT Sodium Potassium Chloride Carbon Dioxide Anion Gap BUN Creatinine Estim Creat Clear Calc Est GFR (MDRD) Af Amer Est GFR (MDRD) Non-Af BUN/Creatinine Ratio Glucose Hemoglobin A1c Lactic Acid Calcium TIBC Ferritin Total Bilirubin AST ALT Alkaline Phosphatase Ammonia 43.0 H Total Protein Albumin Globulin Albumin/Globulin Ratio Lipase Urine Color Urine Clarity Urine pH Ur Specific [place] Urine Protein Urine Glucose (UA) Urine Ketones Urine Occult Blood Urine Nitrite Urine Bilirubin Urine Urobilinogen Ur Leukocyte Esterase Urine RBC Urine WBC Ur Squamous Epith Cells Urine Bacteria Urine Mucus POC Glucose 101 Blood Type Antibody Screen Crossmatch See Detail 11/28/20 11/28/20 11/28/20 04:15 04:15 04:15 WBC 9.8 RBC 3.51 L Hgb 9.4 L Hct 29.6 L MCV 84.3 MCH 26.8 L MCHC 31.8 L D RDW Std Deviation 51.3 H RDW Coeff of Arielle 16.7 H Plt Count 177 MPV 9.2 Immature Gran % (Auto) 0.300 Neut % (Auto) 47.3 Lymph % (Auto) 12.4 L [place] % (Auto) 10.3 H Eos % (Auto) 28.8 H Baso % (Auto) 0.9 Absolute Neuts (auto) 4.6 Absolute Lymphs (auto) 1.21 Nucleated RBC % 0 Differential Comment SCANNED Diff Path Review May foll PT 16.3 H INR 1.4 APTT Sodium 143 Potassium 3.4 L Chloride 111 H Carbon Dioxide 25.0 Anion Gap 7 BUN 55 H Creatinine 3.20 H Estim Creat Clear Calc 11.30 Est GFR (MDRD) Af Amer 18 L Est GFR (MDRD) Non-Af 15 L BUN/Creatinine Ratio 17.2 Glucose 92 Hemoglobin A1c Lactic Acid Calcium 7.9 L TIBC Ferritin Total Bilirubin 1.20 H AST 29 ALT 11 L Alkaline Phosphatase 126 H Ammonia Total Protein 5.4 L Albumin 1.7 L Globulin 3.7 Albumin/Globulin Ratio 0.5 L Lipase Urine Color Urine Clarity Urine pH Ur Specific [place] Urine Protein Urine Glucose (UA) Urine Ketones Urine Occult Blood Urine Nitrite Urine Bilirubin Urine Urobilinogen Ur Leukocyte Esterase Urine RBC Urine WBC Ur Squamous Epith Cells Urine Bacteria Urine Mucus POC Glucose Blood Type Antibody Screen Crossmatch 11/28/20 11/28/20 04:15 04:15 WBC RBC Hgb Hct MCV MCH MCHC RDW Std Deviation RDW Coeff of Arielle Plt Count MPV Immature Gran % (Auto) Neut % (Auto) Lymph % (Auto) [place] % (Auto) Eos % (Auto) Baso % (Auto) Absolute Neuts (auto) Absolute Lymphs (auto) Nucleated RBC % Differential Comment Diff Path Review PT INR APTT Sodium Potassium Chloride Carbon Dioxide Anion Gap BUN Creatinine Estim Creat Clear Calc Est GFR (MDRD) Af Amer Est GFR (MDRD) Non-Af BUN/Creatinine Ratio Glucose Hemoglobin A1c Lactic Acid 1.8 Calcium TIBC Ferritin Total Bilirubin AST ALT Alkaline Phosphatase Ammonia 67.0 H Total Protein Albumin Globulin Albumin/Globulin Ratio Lipase Urine Color Urine Clarity Urine pH Ur Specific [place] Urine Protein Urine Glucose (UA) Urine Ketones Urine Occult Blood Urine Nitrite Urine Bilirubin Urine Urobilinogen Ur Leukocyte Esterase Urine RBC Urine WBC Ur Squamous Epith Cells Urine Bacteria Urine Mucus POC Glucose Blood Type Antibody Screen Crossmatch Micro: Microbiology 11/27/20 20:00 Stool Stool Occult Blood (BONI) - Final Occult Blood Positive 11/27/20 13:50 Nasal Secretion SARS-CoV-2 Antigen (Rapid) - Final Radiography Diagnostic Testing: Radiology Impression Chest/Abdomen/Pelvis CT 11/27/20 14:28 IMPRESSION: Diffuse ascites. Findings suggestive of cirrhosis. Electronically Signed: Arnulfo Ahmadi MD at 15:09 EDT , Service support , Abdomen Ultrasound 11/27/20 20:23 IMPRESSION: Diffuse ascites. Electronically Signed: Arnulfo Ahmadi MD at 8:16 EDT , Service support , Physical Exam Const alert, oriented x3 and no apparent distress General Appearance: cooperative HEENT normocephalic, head/scalp atraumatic and moist oral mucous membranes Eyes PERRL, EOMs intact bilaterally and conjunctivae normal Neck no lymphadenopathy, supple, no JVD and no carotid bruits Resp normal respiratory effort and clear to auscultation bilaterally Auscultation: Negative for crackles, rales, rhonchi or wheezes Cardio regular rate, regular rhythm, S1 normal heart sound, S2 normal heart sound, no murmurs and no JVD Peripheral Pulses: pulses 2+ throughout GI normal to inspection, nondistended, normoactive bowel sounds, soft to palpation, non-tender and non-distended; Negative for hepatosplenomegaly Extremity normal to inspection and full ROM General Extremity: edema Peripheral Pulses: Yes pulses 2+ throughout Skin no rashes or lesions noted and no wounds Neuro oriented x3 and CN's II-XII intact bilaterally Sensorium / Orientation: alert Speech: speech normal Motor Exam: strength 5/5 throughout Psych mental status grossly normal and affect normal Assessment & Plan Assessment/Plan (1) Severe sepsis: Status: Acute Code(s): A41.9 - Sepsis, unspecified organism; R65.20 - Severe sepsis without septic shock (2) Acute kidney injury: Status: Acute Code(s): N17.9 - Acute kidney failure, unspecified (3) Anemia: Status: Acute Code(s): D64.9 - Anemia, unspecified Qualifiers: Anemia type: unspecified type Qualified Code(s): D64.9 - Anemia, unspecified (4) Urinary tract infection: Status: Acute Code(s): N39.0 - Urinary tract infection, site not specified (5) Cirrhosis of liver: Status: Acute Code(s): K74.60 - Unspecified cirrhosis of liver Qualifiers: Ascites presence: with ascites Hepatic cirrhosis type: unspecified hepatic cirrhosis Qualified Code(s): K74.60 - Unspecified cirrhosis of liver; R18.8 - Other ascites Plan: Patient appears stable overall. Transfer out of ICU Continue on Lasix IV 20 mg twice daily Potassium is being replaced; recheck in a.m. Check magnesium level Continue with lactulose Kveen wraps to the legs PT/OT to evaluate and treat H&H every 12h Repeat blood work in a.m.?CBC D and renal panel If patient continues to be stable, will be discharged to follow up with outpatient GI Inpatient E&M: [id number] [facility] L3
[2020-11-28 08:55] LABS: Bedside Glucose 83 mg/dL (70-110)
--- NOTE | 2020-11-28 09:40 | CASEMGMT ---
RN ANTONIO assessment: Face to Face with patient for initial transition planning/care coordination assessment. RN ANTONIO introduced self and role at [facility], pt voices understanding and consents assessment. Pt is lying in bed with paige hugger in place in no distress. Pt is A/Ox4 and answers all questions appropriately. Care providers, pharmacy, and demographics verified. Presentation: Pt c/o not being able to breathe/swallow at the same time, c/o increased weakness and decreased intake Admitting dx: Severe sepsis, severe anemia PCP: Pt states used to see Richard years ago but would like a list of new doctors, preferably female-pt asked this RN ANTONIO to remove Dr. Ramos as her PCP-List provided to pt per request Specialists: Pt states no current specialists. [facility]erred [facility] Prescription Benefit: [employer] Living Will/HPOA: Pt states does not have LW/HPOA but Clayton Fajardo, her contact listed, is working on it. LNOK: Clayton Fajardo, [facility] office Living Arrangements: Pt states has a 'friend' that lives in her mobile home as well and 'she watches my cat.' Pt also states that friend's boyfriend, 'sleeps in the chair most night.' Pt states is independent with ADL's. Transportation: Pt states does not drive but states no transportation concerns. DME/HHC: Pt states has a rollator, grab bars, and shower chair. Pt states no need for any further DME. Pt states no hx of HHC or SNF in the past. Pt states at this time that she would like to go to [facility] at discharge. Alex PRESCOTT aware ,voices understanding. Pt does states concerns with going home at discharge and states would like to go to SNF. Pt states that Clayton was working on this previously. Pt states is retired. Pt states does not smoke cigarettes or drink ETOH. Pt states no further concerns/needs. CM to follow for any further discharge planning/needs. Advised pt to ask for CM if any further questions/concerns/needs arise, voices understanding. Pt Goal: [facility] Plan: [facility], pending it's an in-network facility for pt's insurance. SStaten MANISH ALVAREZ
--- NOTE | 2020-11-28 10:08 | EX.PCM.CONCC ---
Assessment & Plan Assessment/Plan (1) Severe sepsis: Status: Acute Code(s): A41.9 - Sepsis, unspecified organism; R65.20 - Severe sepsis without septic shock (2) Acute kidney injury: Status: Acute Code(s): N17.9 - Acute kidney failure, unspecified (3) Anemia: Status: Acute Code(s): D64.9 - Anemia, unspecified Qualifiers: Anemia type: unspecified type Qualified Code(s): D64.9 - Anemia, unspecified (4) Urinary tract infection: Status: Acute Code(s): N39.0 - Urinary tract infection, site not specified Qualifiers: Urinary tract infection type: acute cystitis Hematuria presence: without hematuria Qualified Code(s): N30.00 - Acute cystitis without hematuria (5) Acute hepatic encephalopathy: Status: Acute Code(s): K72.00 - Acute and subacute hepatic failure without coma (6) Acute blood loss anemia: Status: Acute Code(s): D62 - Acute posthemorrhagic anemia (7) Fatty liver: Status: Acute Code(s): K76.0 - Fatty (change of) liver, not elsewhere classified (8) GI bleed: Status: Acute Code(s): K92.2 - Gastrointestinal hemorrhage, unspecified Qualifiers: GI bleed type/associated pathology: unspecified gastrointestinal hemorrhage type Qualified Code(s): K92.2 - Gastrointestinal hemorrhage, unspecified (9) Pruritic dermatitis: Status: Acute Code(s): L29.9 - Pruritus, unspecified Plan: RECOMMENDATIONS: 1. Add Paxil 10 mg daily and Zyrtec if not responsive. 2. Continue antibiotics 3. Monitor H&H periodically 4. Outpatient follow-up with gastroenterology 5. Okay to leave the intensive care unit 6. Sliding scale insulin only. No Metformin. IMPRESSIONS: 1. Severe sepsis secondary to acute cystitis with gram-negative's Patient with gram-negative's noted on UA and a UA suggestive of infection. Patient appropriately is been started on Rocephin. This should be sufficient. Patient responded to volume resuscitation. Volume resuscitation is complicated by decreased albumin. 2. Acute kidney injury Unclear etiology at this time. Patient does have a significant elevation in creatinine from a baseline of 0.77 in 2015. Patient does have significant liver dysfunction, so hepatorenal syndrome would be a consideration. Prerenal etiology secondary to problem #1 is also a consideration. Patient has responded to fluid resuscitation. No indication for renal replacement therapy at this time. Avoid nephrotoxic drugs. 3. Severe anemia Patient with normocytic anemia. Unfortunately recent blood counts are not available for review. Patient did increment appropriately with transfusions. Patient was guaiac positive and has been complaining of upper GI symptomatology. Surgery is recommending outpatient follow-up with gastroenterology for an evaluation. Agree with IV Protonix for now. 4. Hepatic steatosis/difficulty swallowing/diabetes mellitus type 2 Complicates care, management, recovery and prognosis. Patient with significant ascites on exam. Patient would benefit from an endoscopy. However, this will be higher risk. Patient should not be on Metformin given renal function, age and comorbidities. Sliding scale insulin should be sufficient. Clinical suspicion for significant pruritus secondary to liver dysfunction. Patient will be placed on Paxil 10 mg. Zyrtec can be considered, but is not currently on formulary. HPI Consult Data Date of Consult: 11/28/20 HPI Narrative HPI Narrative: ALYSSIA GUO, is a 85 F, with past medical history listed below, who presented to [facility] on 11/27/2020 secondary to difficulty swallowing for the last week. Patient states that she has had intermittent hemoptysis and has had difficulty swallowing. Patient states she has been unable to swallow liquids and had developed progressive weakness and difficulty ambulating. Patient has had some cramping in her hands. In the ER, patient was noted to be afebrile and initially normotensive. However, over the course of her ER stay she was noted to become hypotensive at 87/37. Laboratory work-up was significant for leukocytosis of 12.8, hemoglobin of 6.7 and a platelet count of 265. INR was slightly elevated at 1.3. Chemistries showed acute kidney injury with a BUN 0.55 with relatively normal liver function. Patient was noted to have an albumin of 2, lactic acid of 3.1 and a UA suggestive of a UTI. Ammonia was elevated at 43, so patient was given some Kayexalate and a 30 cc/kg bolus. Patient was given Rocephin for presumed UTI. Patient was discussed with surgery and it was deemed the patient was appropriate to be admitted here. In the intensive care unit, patient remained relatively stable. Patient did receive 3 units of packed red blood cells with 20 mg of Lasix afterwards. Patient incremented appropriately. Patient was not able to provide much additional history this morning. Patient states that she is does not follow with gastroenterology, but then says that she was diagnosed by a liver doctor as having fatty liver. Patient's biggest complaint during my evaluation was for pruritus to the point that she had scratched herself and the bleeding. Patient denied any respiratory complaints. Patient did not have any dysuria. Patient was not reporting any chest pain. Review of systems otherwise negative from a constitutional, HEENT, respiratory, cardiovascular, GI, genitourinary, musculoskeletal, skin, neurologic, psychiatric and hematologic system unless stated above. [facility] Medical History (Updated 11/28/20 @ 10:[address] Timoteo Chisholm MD) Fatty liver Home Medications NK 11/27/20 [History Last Taken Unknown] Allergy/AdvReac Type Severity Reaction Status Date / Time Penicillins [PCN] Allergy Other Verified 11/27/20 12:54 Surgical History History of tubal ligation Social History household members: none housing: other Smoking Status: Former smoker alcohol intake: never substance use type: does not use ROS ROS Narrative See HPI Physical Exam Const alert and oriented x3 General Appearance: cooperative, well developed and in distress Positive for moderate; Negative for ill appearing HEENT normocephalic and moist oral mucous membranes Eyes PERRL and EOMs intact bilaterally Neck full ROM Lymph Lymphatic: no lymphadenopathy noted Resp normal respiratory effort and no use of accessory muscles Effort and Inspection: able to speak in complete sentences; Negative for uses accessory muscles Auscultation: clear to auscultation bilaterally; Negative for rales, rhonchi or wheezes Cardio regular rate, regular rhythm and S1 normal heart sound Heart Sounds: murmur systolic III/ harsh early left sternal border Peripheral Pulses: pulses 2+ throughout GI Inspection: abdominal distention Palpation: ascites Percussion: fluid wave Extremity General Extremity: edema; Negative for clubbing Peripheral Pulses: Yes pulses 2+ throughout Skin Skin Narrative: Diffuse papular rash noted with some convalescence General Skin Exam: dermatitis Neuro oriented x3 and no focal motor deficits Psych Activity / Motor Behavior: restless Mood & Affect: anxious Lab / Micro Data Result Diagrams: 11/28/20 04:15 11/28/20 04:15 Labs: Laboratory Results - last 24 hr 11/27/20 11/27/20 11/27/20 13:53 13:53 13:53 WBC 12.8 H RBC 2.75 L Hgb 6.7 L Hct 22.7 L MCV 82.5 MCH 24.4 L MCHC 29.5 L RDW Std Deviation 55.0 H RDW Coeff of Arielle 18.6 H Plt Count 265 MPV 9.8 Immature Gran % (Auto) 0.400 Neut % (Auto) 43.9 L Lymph % (Auto) 14.3 L [place] % (Auto) 10.3 H Eos % (Auto) 30.3 H Baso % (Auto) 0.8 Absolute Neuts (auto) 5.6 Absolute Lymphs (auto) 1.82 Nucleated RBC % 0 Differential Comment COMMENT Diff Path Review May foll PT 15.9 H INR 1.3 APTT 29.2 Sodium 142 Potassium 3.6 Chloride 108 H Carbon Dioxide 25.0 Anion Gap 9 BUN 59 H Creatinine 3.55 H Estim Creat Clear Calc 10.19 Est GFR (MDRD) Af Amer 16 L Est GFR (MDRD) Non-Af 13 L BUN/Creatinine Ratio 16.6 Glucose 130 H Hemoglobin A1c Lactic Acid Calcium 8.7 Magnesium TIBC Ferritin Total Bilirubin 0.50 AST 29 ALT 15 Alkaline Phosphatase 170 H Ammonia Total Protein 6.1 L Albumin 2.0 L Globulin 4.1 Albumin/Globulin Ratio 0.5 L Lipase 271 Urine Color Urine Clarity Urine pH Ur Specific Udell Urine Protein Urine Glucose (UA) Urine Ketones Urine Occult Blood Urine Nitrite Urine Bilirubin Urine Urobilinogen Ur Leukocyte Esterase Urine RBC Urine WBC Ur Squamous Epith Cells Urine Bacteria Urine Mucus POC Glucose Blood Type Antibody Screen Crossmatch 11/27/20 11/27/20 11/27/20 13:53 13:53 13:53 WBC RBC Hgb Hct MCV MCH MCHC RDW Std Deviation RDW Coeff of Arielle Plt Count MPV Immature Gran % (Auto) Neut % (Auto) Lymph % (Auto) [place] % (Auto) Eos % (Auto) Baso % (Auto) Absolute Neuts (auto) Absolute Lymphs (auto) Nucleated RBC % Differential Comment Diff Path Review PT INR APTT Sodium Potassium Chloride Carbon Dioxide Anion Gap BUN Creatinine Estim Creat Clear Calc Est GFR (MDRD) Af Amer Est GFR (MDRD) Non-Af BUN/Creatinine Ratio Glucose Hemoglobin A1c < 6.0 H Lactic Acid 3.1 H* Calcium Magnesium TIBC 271 Ferritin Total Bilirubin AST ALT Alkaline Phosphatase Ammonia Total Protein Albumin Globulin Albumin/Globulin Ratio Lipase Urine Color Urine Clarity Urine pH Ur Specific Udell Urine Protein Urine Glucose (UA) Urine Ketones Urine Occult Blood Urine Nitrite Urine Bilirubin Urine Urobilinogen Ur Leukocyte Esterase Urine RBC Urine WBC Ur Squamous Epith Cells Urine Bacteria Urine Mucus POC Glucose Blood Type Antibody Screen Crossmatch 11/27/20 11/27/20 11/27/20 13:53 15:10 15:40 WBC RBC Hgb Hct MCV MCH MCHC RDW Std Deviation RDW Coeff of Arielle Plt Count MPV Immature Gran % (Auto) Neut % (Auto) Lymph % (Auto) [place] % (Auto) Eos % (Auto) Baso % (Auto) Absolute Neuts (auto) Absolute Lymphs (auto) Nucleated RBC % Differential Comment Diff Path Review PT INR APTT Sodium Potassium Chloride Carbon Dioxide Anion Gap BUN Creatinine Estim Creat Clear Calc Est GFR (MDRD) Af Amer Est GFR (MDRD) Non-Af BUN/Creatinine Ratio Glucose Hemoglobin A1c Lactic Acid Calcium Magnesium TIBC Ferritin 18 Total Bilirubin AST ALT Alkaline Phosphatase Ammonia Total Protein Albumin Globulin Albumin/Globulin Ratio Lipase Urine Color Yellow Urine Clarity Sl. Cloudy Urine pH 5.0 Ur Specific Udell 1.025 Urine Protein 15 H Urine Glucose (UA) Normal Urine Ketones Negative Urine Occult Blood Negative Urine Nitrite Negative Urine Bilirubin Negative Urine Urobilinogen Normal Ur Leukocyte Esterase 100 H Urine RBC 0 SEEN Urine WBC 10-25 SEEN Ur Squamous Epith Cells 0 SEEN Urine Bacteria 4+ Urine Mucus 0 SEEN POC Glucose Blood Type O NEGATIVE Antibody Screen NEGATIVE Crossmatch See Detail 11/27/20 11/27/20 11/27/20 15:40 15:40 22:49 WBC RBC Hgb Hct MCV MCH MCHC RDW Std Deviation RDW Coeff of Arielle Plt Count MPV Immature Gran % (Auto) Neut % (Auto) Lymph % (Auto) [place] % (Auto) Eos % (Auto) Baso % (Auto) Absolute Neuts (auto) Absolute Lymphs (auto) Nucleated RBC % Differential Comment Diff Path Review PT INR APTT Sodium Potassium Chloride Carbon Dioxide Anion Gap BUN Creatinine Estim Creat Clear Calc Est GFR (MDRD) Af Amer Est GFR (MDRD) Non-Af BUN/Creatinine Ratio Glucose Hemoglobin A1c Lactic Acid Calcium Magnesium TIBC Ferritin Total Bilirubin AST ALT Alkaline Phosphatase Ammonia 43.0 H Total Protein Albumin Globulin Albumin/Globulin Ratio Lipase Urine Color Urine Clarity Urine pH Ur Specific Udell Urine Protein Urine Glucose (UA) Urine Ketones Urine Occult Blood Urine Nitrite Urine Bilirubin Urine Urobilinogen Ur Leukocyte Esterase Urine RBC Urine WBC Ur Squamous Epith Cells Urine Bacteria Urine Mucus POC Glucose 101 Blood Type Antibody Screen Crossmatch See Detail 11/28/20 11/28/20 11/28/20 04:15 04:15 04:15 WBC 9.8 RBC 3.51 L Hgb 9.4 L Hct 29.6 L MCV 84.3 MCH 26.8 L MCHC 31.8 L D RDW Std Deviation 51.3 H RDW Coeff of Arielle 16.7 H Plt Count 177 MPV 9.2 Immature Gran % (Auto) 0.300 Neut % (Auto) 47.3 Lymph % (Auto) 12.4 L [place] % (Auto) 10.3 H Eos % (Auto) 28.8 H Baso % (Auto) 0.9 Absolute Neuts (auto) 4.6 Absolute Lymphs (auto) 1.21 Nucleated RBC % 0 Differential Comment SCANNED Diff Path Review November foll PT 16.3 H INR 1.4 APTT Sodium 143 Potassium 3.4 L Chloride 111 H Carbon Dioxide 25.0 Anion Gap 7 BUN 55 H Creatinine 3.20 H Estim Creat Clear Calc 11.30 Est GFR (MDRD) Af Amer 18 L Est GFR (MDRD) Non-Af 15 L BUN/Creatinine Ratio 17.2 Glucose 92 Hemoglobin A1c Lactic Acid Calcium 7.9 L Magnesium TIBC Ferritin Total Bilirubin 1.20 H AST 29 ALT 11 L Alkaline Phosphatase 126 H Ammonia Total Protein 5.4 L Albumin 1.7 L Globulin 3.7 Albumin/Globulin Ratio 0.5 L Lipase Urine Color Urine Clarity Urine pH Ur Specific Udell Urine Protein Urine Glucose (UA) Urine Ketones Urine Occult Blood Urine Nitrite Urine Bilirubin Urine Urobilinogen Ur Leukocyte Esterase Urine RBC Urine WBC Ur Squamous Epith Cells Urine Bacteria Urine Mucus POC Glucose Blood Type Antibody Screen Crossmatch 11/28/20 11/28/20 11/28/20 04:15 04:15 04:15 WBC RBC Hgb Hct MCV MCH MCHC RDW Std Deviation RDW Coeff of Arielle Plt Count MPV Immature Gran % (Auto) Neut % (Auto) Lymph % (Auto) [place] % (Auto) Eos % (Auto) Baso % (Auto) Absolute Neuts (auto) Absolute Lymphs (auto) Nucleated RBC % Differential Comment Diff Path Review PT INR APTT Sodium Potassium Chloride Carbon Dioxide Anion Gap BUN Creatinine Estim Creat Clear Calc Est GFR (MDRD) Af Amer Est GFR (MDRD) Non-Af BUN/Creatinine Ratio Glucose Hemoglobin A1c Lactic Acid 1.8 Calcium Magnesium 2.0 TIBC Ferritin Total Bilirubin AST ALT Alkaline Phosphatase Ammonia 67.0 H Total Protein Albumin Globulin Albumin/Globulin Ratio Lipase Urine Color Urine Clarity Urine pH Ur Specific Udell Urine Protein Urine Glucose (UA) Urine Ketones Urine Occult Blood Urine Nitrite Urine Bilirubin Urine Urobilinogen Ur Leukocyte Esterase Urine RBC Urine WBC Ur Squamous Epith Cells Urine Bacteria Urine Mucus POC Glucose Blood Type Antibody Screen Crossmatch 11/28/20 08:13 WBC RBC Hgb Hct MCV MCH MCHC RDW Std Deviation RDW Coeff of Arielle Plt Count MPV Immature Gran % (Auto) Neut % (Auto) Lymph % (Auto) [place] % (Auto) Eos % (Auto) Baso % (Auto) Absolute Neuts (auto) Absolute Lymphs (auto) Nucleated RBC % Differential Comment Diff Path Review PT INR APTT Sodium Potassium Chloride Carbon Dioxide Anion Gap BUN Creatinine Estim Creat Clear Calc Est GFR (MDRD) Af Amer Est GFR (MDRD) Non-Af BUN/Creatinine Ratio Glucose Hemoglobin A1c Lactic Acid Calcium Magnesium TIBC Ferritin Total Bilirubin AST ALT Alkaline Phosphatase Ammonia Total Protein Albumin Globulin Albumin/Globulin Ratio Lipase Urine Color Urine Clarity Urine pH Ur Specific Udell Urine Protein Urine Glucose (UA) Urine Ketones Urine Occult Blood Urine Nitrite Urine Bilirubin Urine Urobilinogen Ur Leukocyte Esterase Urine RBC Urine WBC Ur Squamous Epith Cells Urine Bacteria Urine Mucus POC Glucose 83 Blood Type Antibody Screen Crossmatch Micro: Microbiology 11/27/20 15:10 Urine Culture - Preliminary Urine Catheter - Krueger Gram negative dewey 11/27/20 20:00 Stool Occult Blood (BONI) - Final Stool Occult Blood Positive 11/27/20 13:50 SARS-CoV-2 Antigen (Rapid) - Final Nasal Secretion Radiology Impression Chest/Abdomen/Pelvis CT 11/27/20 14:28 IMPRESSION: Diffuse ascites. Findings suggestive of cirrhosis. Electronically Signed: Arnulfo Ahmadi MD at 15:09 EDT , Service support , Abdomen Ultrasound 11/27/20 20:23 IMPRESSION: Diffuse ascites. Electronically Signed: Arnulfo Ahmadi MD at 8:16 EDT , Service support , Charges/Coding Inpatient E&M: [id number] Init Hosp L3
--- NOTE | 2020-11-28 11:19 | CASEMGMT ---
Addendum entered by Adrianne Hou 11/28/20 12:50: Pt requested to speak w/SW. SW spoke again w/SW at the bedside in regard to plan. She states she needs to speak w/Clayton at the law office because I can't just lay here and not know what to do. She needs to tell me what to do. SW did again review what is covered by insurance, and that the insurance will cover for just a short time for rehab. Initially pt states she just wants to go somewhere and watch TV and doesn't want to do therapy. She asked the private pay cost at [facility], SW called, it's $255/day semiprivate and $285/day private. SW let pt know, she now is considering going somewhere for therapy short term, but still is not certain where to go. We spoke about both the short term and fdc plan. 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 She again asked to speak with Clayton. SW called the law office, and the workers compensation attorney Rachel Alvarez answered, SW put her on the phone w/the pt. Pt spoke w/her, then therapy came in to see pt. SW will follow up w/pt and/or workers compensation attorney later in the day in regard to what she would like to do. SW did leave w/pt list of nursing homes with quality and resource use data in pt's insurance network. ELIZABETH Pastor Original Note: Pt had indicated to that she would like to go to the [facility] at discharge. SW reviewed [facility] website, to see if the [facility] is in network, it is not listed. SW called [facility], spoke w/Lelia, confirmed that they are not in network with [employer]. SW spoke w/pt in room, in regard to discharge plan. Pt laying in bed, asking for some ice chips. RN walked in at that point, she explained pt is waiting for a swallow evaluation to make sure she can swallow okay, SW reiterated this to pt. SW then spoke w/pt about going to the [facility], explained that they do not take her insurance, offered pt a list of half-way facilities that take her insurance in her geographic area, that can meet her medical needs, with quality and resource use data. Pt declined the list, states she only wants to go to [facility]. SW offered to call insurance to see how her stay may be covered at [facility]. Pt agreeable to this, and also asked SW to call Clayton Fajardo, states that she is pt's POA. She states Clayton has been working on this for her. SW called [employer], pt's custodial benefits are as follows: In network(subject to precert): Days 1-20 covered at 100%, days 21-100 have a $184 copay, max out of pocket for in network is $6300. Pt has met $0. Out of network(subject to precert): Days 1-100 covered at 50%, max out of pocket for out of network is $10,000. Pt has met $0 of out of network. SW called Clayton Fajardo at [facility], she explained she is a cafe site attendant, and their law office has worked w/pt for years. She states pt has made various people POA throughout the years that may not have always had her best interests in minds. She states that Rachel Doe is to be her POA but pt has not completed the forms yet, asked if they could come here to complete them. SW asked pt, she is agreeable, SW let Clayton know that they can come in to complete the medical POA forms. She states Rachel will be here at 2pm with a notary. SW spoke w/Clayton about pt also and discharge plan. She explained had been speaking w/pt about going to [facility], in the independent living, was unaware of limits of her insurance for the custodial. SW explained the [employer] benefit and that [facility] is covered at 50%. SW reviewed w/Clayton the options in network. She states [facility] may be an option. SW will continue to follow, will follow up after pt has the POA papers signed. Pt has already instructed SW to speak w/Clayton, will check in w/pt and POA about where they would like referral sent, [facility] or [facility]. ELIZABETH Pastor
[2020-11-28 11:21] LABS: Bedside Glucose 83 mg/dL (70-110)
[2020-11-28 12:48] LABS: Pathologist Review Reviewed
[2020-11-28 12:49] LABS: Pathologist Review Reviewed
[2020-11-28 14:18] LABS: Hematocrit 33.9 % (37-47); Hemoglobin 10.8 g/dL (12.0-15.0)
--- NOTE | 2020-11-28 16:35 | CHAPLAIN ---
Type of Pastoral Visit _x__ Initial Visit ___ Follow-up Visit ___ On-call Visit ___ General Patient Visit ___ Spiritual Assessment ___ Family Conference ___ Bereavement ___ Rapid Response ___ Code Blue ___ Other (describe below) Pastoral Care Referral From _x__ Patient ___ Family ___ Nurse ___ Physician ___ Trouble Dispatcher ___ Enforcement Manager ___ Other (describe below) Sacrament/Intervention _x__ Active listening ___ Anointing ___ Congregation ___ Bereavement ___ Communion _x__ Veronique exploration ___ _x__ Life review _x__ Prayer ___ Reconciliation ___ Sacrament of Sick ___ Supportive presence ___ Wedding _x__ Other (describe below) Pastoral Comments patient questions why the manager nicu was sent to her room but once assured that visit can be for her choice and benefit pt is very talkative and open about some of her life; pt has requests for TV channel to be changed, kleenex given, and blankets to be put around her; pt speaks of spiritual thoughts and Bible verses she quotes from memory; pt says that she is waiting for my guardian siobhan and talks [facility]; pt requests prayer and further visits if possible
[2020-11-28 19:11] LABS: Bedside Glucose 87 mg/dL (70-110)
[2020-11-28 21:23] LABS: Hemoglobin 10.1 g/dL (12.0-15.0)
[2020-11-28 22:26] LABS: Bedside Glucose 78 mg/dL (70-110)
[2020-11-29] VITALS (11 sets, daily range): BP systolic 94–107; BP diastolic 34–50; PULSE 85–97; RESP 14–16; TEMP 36.2–36.6; O2SAT 93–98
[2020-11-29 06:40] LABS: ALB/GLOB Ratio 0.5 RATIO (0.9-2.4); AST(SGOT) 30 U/L (15-37); Alanine Aminotransfer ALT/SGPT 13 U/L (13-56); Albumin, Serum 1.7 g/dL (3.2-5.0); Alkaline Phosphatase 110 U/L (45-117); Anion Gap 11 (5-15); BUN 56 mg/dL (7-18); Chloride 111 mmol/L (98-107); EST Glomerular Filtration Rate 14 mL/min (>60); Est Glom Filt Rate - Afr Amer 17 mL/min (>60); Estimated Creatinine Clearance 10.96 ml/min; Globulin 3.6 g/dL (2.2-4.2); Glucose 71 mg/dL (74-106); Potassium 3.5 mmol/L (3.5-5.1); Protein, Total 5.3 g/dL (6.4-8.2); Sodium Level 144 mmol/L (136-145)
[2020-11-29 07:00] LABS: Bedside Glucose 75 mg/dL (70-110)
--- NOTE | 2020-11-29 08:50 | PN.CC_ITS ---
Subjective Subjective: Patient transferred out of the intensive care unit yesterday. Patient has been maintained on room air and no fluid boluses were required overnight. Patient is still reporting significant pruritus, but did not receive Paxil secondary to swallow concerns. Patient is denying any chest pain or shortness of breath at this time. Objective Data Objective Data Vital Signs: Vital Signs Temp Pulse Resp BP Pulse Ox 36.6 C 96 14 94/44 L 96 11/29/20 08:16 11/29/20 08:16 11/29/20 08:16 11/29/20 08:16 11/29/20 08:16 Oxygen Delivery Method Room Air Weight: 72.6 kg Body Mass Index (BMI) 26.9 Finger Stick Blood Glucose 130 Intake & Output: Intake and Output for Last 24 Hours 11/27/20 11/28/20 11/29/20 23:59 23:59 23:59 Intake Total 2960 / 2960 1490 / 1490 0 / 0 Output Total 400 / 400 700 / 700 250 / 250 Balance 2560 / 2560 790 / 790 -250 / -250 Lab / Micro Data Result Diagrams: 11/28/20 21:15 11/29/20 05:55 Labs: Laboratory Results - last 24 hr 11/27/20 11/28/20 11/28/20 13:53 04:15 08:13 Hgb Hct Diff Path Review Reviewed Reviewed Sodium Potassium Chloride Carbon Dioxide Anion Gap BUN Creatinine Estim Creat Clear Calc Est GFR (MDRD) Af Amer Est GFR (MDRD) Non-Af BUN/Creatinine Ratio Glucose Calcium Total Bilirubin AST ALT Alkaline Phosphatase Total Protein Albumin Globulin Albumin/Globulin Ratio POC Glucose 83 11/28/20 11/28/20 11/28/20 11:14 14:10 18:18 Hgb 10.8 L Hct 33.9 L Diff Path Review Sodium Potassium Chloride Carbon Dioxide Anion Gap BUN Creatinine Estim Creat Clear Calc Est GFR (MDRD) Af Amer Est GFR (MDRD) Non-Af BUN/Creatinine Ratio Glucose Calcium Total Bilirubin AST ALT Alkaline Phosphatase Total Protein Albumin Globulin Albumin/Globulin Ratio POC Glucose 83 87 11/28/20 11/28/20 11/29/20 21:15 22:06 05:55 Hgb 10.1 L Hct 32.0 L Diff Path Review Sodium 144 Potassium 3.5 Chloride 111 H Carbon Dioxide 22.0 Anion Gap 11 BUN 56 H Creatinine 3.30 H Estim Creat Clear Calc 10.96 Est GFR (MDRD) Af Amer 17 L Est GFR (MDRD) Non-Af 14 L BUN/Creatinine Ratio 17.0 Glucose 71 L Calcium 8.0 L Total Bilirubin 0.80 AST 30 ALT 13 Alkaline Phosphatase 110 Total Protein 5.3 L Albumin 1.7 L Globulin 3.6 Albumin/Globulin Ratio 0.5 L POC Glucose 78 11/29/20 06:47 Hgb Hct Diff Path Review Sodium Potassium Chloride Carbon Dioxide Anion Gap BUN Creatinine Estim Creat Clear Calc Est GFR (MDRD) Af Amer Est GFR (MDRD) Non-Af BUN/Creatinine Ratio Glucose Calcium Total Bilirubin AST ALT Alkaline Phosphatase Total Protein Albumin Globulin Albumin/Globulin Ratio POC Glucose 75 Micro: Microbiology 11/27/20 15:10 Urine Catheter - Krueger Urine Culture - Final Escherichia coli 11/27/20 20:00 Stool Stool Occult Blood (BONI) - Final Occult Blood Positive 11/27/20 13:50 Nasal Secretion SARS-CoV-2 Antigen (Rapid) - Final Physical Exam Const alert and oriented x3 General Appearance: cooperative and well developed; Negative for ill appearing HEENT normocephalic and moist oral mucous membranes Eyes PERRL and EOMs intact bilaterally Neck full ROM Lymph Lymphatic: no lymphadenopathy noted Resp normal respiratory effort and no use of accessory muscles Effort and Inspection: able to speak in complete sentences; Negative for uses accessory muscles Auscultation: clear to auscultation bilaterally; Negative for rales, rhonchi or wheezes Cardio regular rate, regular rhythm and S1 normal heart sound Heart Sounds: murmur systolic III/ harsh early left sternal border Peripheral Pulses: pulses 2+ throughout GI Inspection: abdominal distention Palpation: ascites Percussion: fluid wave Extremity General Extremity: edema; Negative for clubbing Skin Skin Narrative: Diffuse papular rash noted with some convalescence General Skin Exam: dermatitis Neuro oriented x3 and no focal motor deficits Psych Activity / Motor Behavior: restless Mood & Affect: anxious Assessment & Plan Assessment/Plan (1) Severe sepsis: Status: Acute Code(s): A41.9 - Sepsis, unspecified organism; R65.20 - Severe sepsis without septic shock (2) Acute kidney injury: Status: Acute Code(s): N17.9 - Acute kidney failure, unspecified (3) Anemia: Status: Acute Code(s): D64.9 - Anemia, unspecified Qualifiers: Anemia type: unspecified type Qualified Code(s): D64.9 - Anemia, unspecified (4) Urinary tract infection: Status: Acute Code(s): N39.0 - Urinary tract infection, site not specified Qualifiers: Urinary tract infection type: acute cystitis Hematuria presence: without hematuria Qualified Code(s): N30.00 - Acute cystitis without hematuria (5) Acute hepatic encephalopathy: Status: Acute Code(s): K72.00 - Acute and subacute hepatic failure without coma (6) Acute blood loss anemia: Status: Acute Code(s): D62 - Acute posthemorrhagic anemia (7) Fatty liver: Status: Acute Code(s): K76.0 - Fatty (change of) liver, not elsewhere classified (8) GI bleed: Status: Acute Code(s): K92.2 - Gastrointestinal hemorrhage, unspecified Qualifiers: GI bleed type/associated pathology: unspecified gastrointestinal h emorrhage type Qualified Code(s): K92.2 - Gastrointestinal hemorrhage, uns pecified (9) Pruritic dermatitis: Status: Acute Code(s): L29.9 - Pruritus, unspecified Plan: RECOMMENDATIONS: 1. Await response to Paxil 10 mg daily and Zyrtec if not responsive. 2. Okay to complete a 3-day course of antibiotics if blood cultures remain negative 3. Reasonable to monitor H&H daily 4. Outpatient follow-up with gastroenterology 5. No pulmonary outpatient follow-up would be indicated 6. Hemodynamically stable on room air. Will sign off from a critical care perspective IMPRESSIONS: 1. Severe sepsis secondary to acute cystitis with gram-negative's Patient with gram-negative's noted on UA and a UA suggestive of infection. Patient appropriately is been started on Rocephin. This should be sufficient to be treated with a 3-day course. Patient responded to volume resuscitation. Volume resuscitation is complicated by decreased albumin. 2. Acute kidney injury Unclear etiology at this time. Patient does have a significant elevation in creatinine from a baseline of 0.77 in 2015. Patient does have significant liver dysfunction, so hepatorenal syndrome would be a consideration. Prerenal etiology secondary to problem #1 is also a consideration. Patient has responded to fluid resuscitation. No indication for renal replacement therapy at this time. Avoid nephrotoxic drugs. Consider obtaining records that are more recent to see if this indicates CKD 3. Severe anemia Patient with normocytic anemia. Unfortunately recent blood counts are not available for review. Patient did increment appropriately with transfusions. Patient was guaiac positive and has been complaining of upper GI symptomatology. Surgery is recommending outpatient follow-up with gastroenterology for an kim luation. Agree with IV Protonix for now. Likely okay to transition to p.o. Protonix twice daily once swallow is evaluated 4. Hepatic steatosis/difficulty swallowing/diabetes mellitus type 2 Complicates care, management, recovery and prognosis. Patient with significant ascites on exam. Patient would benefit from an endoscopy. However, this will be higher risk. Patient should not be on Metformin given renal function, age and comorbidities. Sliding scale insulin should be sufficient. Clinical suspicion for significant pruritus secondary to liver dysfunction. Patient will be placed on Paxil 10 mg. Zyrtec can be considered, but is not currently on formulary. Inpatient E&M: 40824 Subs Hosp L2
--- NOTE | 2020-11-29 10:39 | SP.MBSS_ITS ---
Modified Barium Swallow - Patient Information Study Date: 11/29/20 Study Time: 09:30 Direct Billable Minutes: 120 Total Minutes procedure & reportin Diagnosis: dysphagia, unspecified (R13.10) Referring Physician: Hetal Munguia Reason for Referral: To evaluate oropharyngeal function and determine presence of aspiration. Medical History: This patient is a 85 y/o F with past medical history significant for fatty liver and DMII (not taking medication) as who presented to the emergency room on 11/27/2020 d/t reported difficulty swallowing and weakness and reportedly coughed up a blood clot 1 week ago w/ throat pain and difficulty swallowing since that time. Admitted d/t severe sepsis due to UTI, severe anemia and acute renal failure. CT scan shows diffuse ascites and evidence of a cirrhotic liver. Patient is oxygenating on room air. Current Diet Ordered: NPO Dentition: Natural Teeth Mental Status: WNL Respiratory Status: Oxygenating on Room Air - Study Findings Consistencies: Thin Liquid, [place] Thick Liquid, Honey Thick Liquid, Pudding, Cookie - Penetration-Aspiration Scale Penetration-Aspiration Scale: OBJECTIVE ASSESSMENT OF SWALLOW FUNCTION (QUANTITATIVE ? PER TRIAL): PENETRATION / ASPIRATION SCALE (AQUINO): 1 = does not enter airway 2 = enters airway/above vocal folds/ejected 3 = enters airway/above vocal folds/not ejected 4 = enters airway/contacts vocal folds/ejected 5 = enters airway/contacts vocal folds/not ejected 6 = enters airway/below vocal folds/ejected 7 = enters airway/below vocal folds/not ejected despite effort 8 = enters airway/below vocal folds/no effort - Penetration-Aspiration Scale Score Thin Liquid via teaspoon Result: 5= enters airways/contacts vocal folds/not ejected Thin Liquid via teaspoon Trial 2 Result: 1= does not enter airway Thin Liquid via small single sip from cup Result: 1= does not enter airway Thin Liquid via large single sip from cup Result: 1= does not enter airway Thin Liquid via sequential sips from cup Result: 1= does not enter airway [place] Thick Liquid via large single sip from cup Result: 1= does not enter airway Honey Thick Liquid via large single sip from cup Result: 1= does not enter airway Pudding via teaspoon Result: 1= does not enter airway Cookie Result: 1= does not enter airway Thin Liquid via sequential sips from straw Result: 1= does not enter airway - Oral Phase Labial Seal: Escape progressing to mid-chin Tongue Control During Bolus Hold: Posterior escape of less than half of bolus Bolus Preparation/Mastication: Slow prolonged chewing/mashing with complete recollection Bolus Transport/Lingual Motion: Slowed tongue motion Oral Residue: Trace residue lining oral structures - Pharyngeal Phase Initiation of Pharyngeal Swallow: Bolus head in pyriforms Soft Palate Elevation: No bolus between soft palate and pharyngeal wall Laryngeal Elevation: Partial superior movement thyroid cart/partial apprx aryt- epig petiole Anterior Hyoid Excursion: Partial anterior movement Epiglottic Movement: Complete inversion Laryngeal Vestibule Closure at Height of Swallow: Incomplete; narrow column of air/contrast in laryngeal vestibule Pharyngeal Stripping Wave: Present - complete Pharyngoesophageal Segment Opening: Parital distension and partial duration; parital obstruction of flow Tongue Base Retraction: Wide column of contrast between tongue base & post. pharyngeal wall Pharyngeal Residue: Collection of residue within or on pharyngeal structures - Diagnosis/Impression Diagnosis: mild oropharyngeal dysphagia (R13.12) Impression: Oral phase characterized by slow mastication in preparation for what appeared to be very effortful swallow initiation. Patient with immediate c/o cramping after most PO trials. Patient presented with slowed tongue movement and effortful anterior to posterior transfer at times tipping head back to allow gravity to work with the patient. Pharyngeal phase marked by bolus head presentation in pyriforms at swallow initiation. Patient presented with adequate epiglottic inversion and decreased anterior hyoid excursion. Pharyngeal residue remained in the vallecula and pyriforms. No aspiration found. Upon first teaspoon sip trial patient had penetration to the vocal cords without ejection however no other penetration was found during remaining trials. Patient in much discomfort with swallowing during MBS study stating that she felt significant cramping after most trials. In addition, patient was found to tighten neck during most trials with facial grimacing in effort to swallow. Wou ld strongly encourage GI consult to evaluate esophageal function if patient is a candidate. - Recommendations Diet: Puree Textures, Thin Liquids Compensatory Strategies: Small Bites - one at a time with pauses in between, Small Sips - one at a time with pauses in between, Slow Rate, Sitting upright, Remain sitting upright for 30 minutes after PO intake, Assist with verbal cues to use recommended strategies - verbal cues to take double swallow for every bite Supervision: 1:1 Close Supervision Recommend Repeat Modified Barium Swallow: TBD Need for Skilled Speech Therapy Services: Yes Recommended Referrals: GI Consult Education Completed: 1. Described result of evaluation., 7. Pt requires further education on strategies & risks. Comment: RN caring for patient on the progressive care unit updated with MBS results as well. - Status Active ST Patient: Active - Contact Information [facility] Speech Therapy:: Sharmin Dockery MA, [facility] [place] [phone] [email or web address]
[2020-11-29] MEDS: PARoxetine 10 MG Tablet PO (11:43)
[2020-11-29] MEDS: Lactulose 20 GM/30 ML UDC PO (11:43)
[2020-11-29 12:25] LABS: Bedside Glucose 78 mg/dL (70-110)
--- NOTE | 2020-11-29 15:25 | PCM.PN.HOSP ---
Subjective Subjective: Patient was seen and examined. She was kept n.p.o. yesterday because she failed her swallow exam. She had a modified barium swallow that showed mild oropharyngeal dysphagia. She was started on pur?ed textures, thin liquids. Discussed with general surgery, patient is not a candidate for any intervention. Palliative care referral was made. Objective Data Objective Data Vital Signs: Vital Signs Temp Pulse Resp BP Pulse Ox 97.8 F 91 15 107/50 L 97 11/29/20 15:10 11/29/20 15:10 11/29/20 15:10 11/29/20 15:10 11/29/20 15:10 Oxygen Delivery Method Room Air Weight: 160 lb 0.889 oz Body Mass Index (BMI) 26.9 Finger Stick Blood Glucose 130 Intake & Output: Intake and Output for Last 24 Hours 11/27/20 11/28/20 11/29/20 23:59 23:59 23:59 Intake Total 2960 / 2960 1490 / 1490 680 / 680 Output Total 400 / 400 700 / 700 500 / 500 Balance 2560 / 2560 790 / 790 180 / 180 Lab / Micro Data Result Diagrams: 11/28/20 21:15 11/29/20 05:55 Labs: Laboratory Results - last 24 hr 11/28/20 11/28/20 11/28/20 18:18 21:15 22:06 Hgb 10.1 L Hct 32.0 L Sodium Potassium Chloride Carbon Dioxide Anion Gap BUN Creatinine Estim Creat Clear Calc Est GFR (MDRD) Af Amer Est GFR (MDRD) Non-Af BUN/Creatinine Ratio Glucose Calcium Total Bilirubin AST ALT Alkaline Phosphatase Total Protein Albumin Globulin Albumin/Globulin Ratio POC Glucose 87 78 11/29/20 11/29/20 11/29/20 05:55 06:47 11:48 Hgb Hct Sodium 144 Potassium 3.5 Chloride 111 H Carbon Dioxide 22.0 Anion Gap 11 BUN 56 H Creatinine 3.30 H Estim Creat Clear Calc 10.96 Est GFR (MDRD) Af Amer 17 L Est GFR (MDRD) Non-Af 14 L BUN/Creatinine Ratio 17.0 Glucose 71 L Calcium 8.0 L Total Bilirubin 0.80 AST 30 ALT 13 Alkaline Phosphatase 110 Total Protein 5.3 L Albumin 1.7 L Globulin 3.6 Albumin/Globulin Ratio 0.5 L POC Glucose 75 78 Micro: Microbiology 11/27/20 15:10 Urine Catheter - Krueger Urine Culture - Final Escherichia coli 11/27/20 20:00 Stool Stool Occult Blood (BONI) - Final Occult Blood Positive 11/27/20 13:50 Nasal Secretion SARS-CoV-2 Antigen (Rapid) - Final Physical Exam Const alert, oriented x3 and no apparent distress General Appearance: cooperative HEENT normocephalic, head/scalp atraumatic and moist oral mucous membranes Eyes PERRL, EOMs intact bilaterally and conjunctivae normal Neck no lymphadenopathy, supple, no JVD and no carotid bruits Resp normal respiratory effort and clear to auscultation bilaterally Auscultation: Negative for crackles, rales, rhonchi or wheezes Cardio regular rate, regular rhythm, S1 normal heart sound, S2 normal heart sound, no murmurs and no JVD Peripheral Pulses: pulses 2+ throughout GI normal to inspection, nondistended, normoactive bowel sounds, soft to palpation, non-tender and non-distended; Negative for hepatosplenomegaly Extremity normal to inspection and full ROM General Extremity: edema Skin no rashes or lesions noted and no wounds Neuro oriented x3 and CN's II-XII intact bilaterally Sensorium / Orientation: alert Speech: speech normal Motor Exam: strength 5/5 throughout Psych mental status grossly normal and affect normal Assessment & Plan Assessment/Plan (1) Severe sepsis: Status: Acute Code(s): A41.9 - Sepsis, unspecified organism; R65.20 - Severe sepsis without septic shock (2) Acute kidney injury: Status: Acute Code(s): N17.9 - Acute kidney failure, unspecified (3) Anemia: Status: Acute Code(s): D64.9 - Anemia, unspecified Qualifiers: Anemia type: unspecified type Qualified Code(s): D64.9 - Anemia, unspecified (4) Urinary tract infection: Status: Acute Code(s): N39.0 - Urinary tract infection, site not specified Qualifiers: Urinary tract infection type: acute cystitis Hematuria presence: without hematuria Qualified Code(s): N30.00 - Acute cystitis without hematuria (5) Cirrhosis of liver: Status: Ruled-out Code(s): K74.60 - Unspecified cirrhosis of liver Qualifiers: Hepatic cirrhosis type: unspecified hepatic cirrhosis Ascites presence: with ascites Qualified Code(s): K74.60 - Unspecified cirrhosis of liver; R18.8 - Other ascites (6) Dysphagia: Status: Acute Code(s): R13.10 - Dysphagia, unspecified (7) GI bleed: Status: Resolved Code(s): K92.2 - Gastrointestinal hemorrhage, unspecified Qualifiers: GI bleed type/associated pathology: unspecified gastrointestinal hemorrhage type Qualified Code(s): K92.2 - Gastrointestinal hemorrhage, unspecified (8) Acute hepatic encephalopathy: Status: Resolved Code(s): K72.00 - Acute and subacute hepatic failure without coma (9) Ascites: Status: Chronic Code(s): R18.8 - Other ascites Plan: No definite GI bleed seen; stool for occult blood is positive. Hemoglobin has been stable We will get 2D echo to evaluate for cardiac etiology of ascites as ultrasound of the liver was not suggestive of liver cirrhosis Continue on pureed diet; speech therapy following Continue on IV ceftriaxone for now as patient has problems with dysphagia; will switch to oral from tomorrow Switch to Lasix p.o. 20 twice daily, continue with lactulose Keven wraps to the legs. PT/OT to evaluate and treat Repeat blood work in a.m.?CBCD and renal panel Discharge planning in the works; social work following Visit Charges Inpatient E&M: 01862 Subs Hosp L3
--- NOTE | 2020-11-29 15:31 | ECHOD_ITS ---
Reason For Study: DYSPNEA Procedure This was a 2D Doppler, Color Flow transthoracic echocardiogram. Exam performed portable in patient room. Left Ventricle Normal left ventricle. Septal motion consistent with IVCD. The estimated ejection fraction is EF 60- 65% %. Right Ventricle Normal right ventricle. Normal systolic function. Atria Normal left atrium. Normal right atrium. Intact atrial septum. Mitral Valve The mitral valve is structurally normal. No prolapse or stenosis seen. Trivial mitral valve insufficiency. Tricuspid Valve Normal tricuspid valve. Mild tricuspid valve insufficiency. Aortic Valve Normal aortic valve. No aortic valve insufficiency. Pulmonic Valve The pulmonic valve is not well visualized. Great Vessels Normal aortic root. Pericardium/Pleural No pericardial effusion. MMode/2D Measurements & Calculations LVIDd: 4.1 cm IVSd: 0.96 cm Ao root diam: 3.3 cm LVIDs: 2.8 cm LVPWd: 0.85 cm RVDd: 4.1 cm FS: 31.1 % LAV(MOD-bp): 42.8 ml LVAd ap4: 27.2 cm2 LVAd ap2: 21.8 cm2 LAV(MOD-bp) Indexed: 24.1 ml/m2 LVLd ap4: 7.5 cm LVLd ap2: 7.2 cm LAV(MOD-sp2): 41.2 ml EDV(MOD-sp4): 78.7 ml EDV(MOD-sp2): 54.5 ml LAV(MOD-sp4): 38.2 ml EDV(sp4-el): 83.7 ml EDV(sp2-el): 56.2 ml LVAs ap4: 15.0 cm2 LVAs ap2: 10.8 cm2 LVLs ap4: 6.3 cm LVLs ap2: 6.0 cm ESV(MOD-sp4): 29.5 ml ESV(MOD-sp2): 17.1 ml ESV(sp4-el): 30.6 ml ESV(sp2-el): 16.5 ml EF(MOD-sp4): 62.6 % EF(MOD-sp2): 68.6 % EF(sp4-el): 63.5 % SV(MOD-sp4): 49.2 ml SV(MOD-sp2): 37.4 ml SV(sp4-el): 53.2 ml LA dimension(2D): 2.9 cm LA A4 area: 17.0 cm2 RA A4 area: 11.5 cm2 Time Measurements MV dec time: 0.24 sec Doppler Measurements & Calculations MV E max jameel: 94.9 cm/sec Lat Peak E' Jameel: 11.1 cm/sec Med Peak E' Jameel: 6.5 cm/sec MV A max jameel: 113.2 cm/sec E/E' lat: 8.6 E/E' med: 14.7 MV E/A: 0.84 MV V2 max: 146.7 cm/sec Ao V2 max: 188.9 cm/sec LV V1 max: 163.6 cm/sec MV max P.6 mmHg Ao max P.3 mmHg LV V1 max P.7 mmHg MV V2 mean: 90.5 cm/sec MV mean P.6 mmHg MV V2 VTI: 22.9 cm PA V2 max: 142.2 cm/sec TR max jameel: 289.2 cm/sec TR max P.5 mmHg ECHO/Echo Complete Interpretation Summary The estimated ejection fraction is EF 60-65% %. Normal LV systolic function Grade #I Diastolic function Mild TR RVSP calculate 43.5 mmhg consistent with mild pulmonary Hypertension Ordering Physician: Hetal Munguia Performed By: Yuko Cassidy, BEKA, RVT
--- NOTE | 2020-11-29 15:56 | CASEMGMT ---
SW spoke with patient about where she would like to go. She said Rachel and Clayton at the law office are working on it. She told SW she can call them, but to call them while SW is in her room. SW called [facility] and she said she is checking into it. GENIE told her that in order for a facility to accept her SW will have to send a referral. She said she understands and will let SW know. She asked when patient is ready for discharge. GENIE told her patient is ready for discharge today. She said she will continue to work on it and will let SW know. GENIE also told patient that if she wants to go somewhere she is going to have to do therapy. Otherwise her insurance will not approve her to go to a snf. Shy PEREZ
--- NOTE | 2020-11-29 17:29 | CASEMGMT ---
GENIE did get a message from Rachel and she asked GENIE to send a referral to [facility] for patient. Referral was faxed to [facility]. Patient will be here through the weekend as [facility] will have to accept her and insurance will need to approve her. Shy Rose [employer]
[2020-11-29] MEDS: Furosemide 20 MG Tablet PO (18:01)
[2020-11-29 18:15] LABS: Bedside Glucose 134 mg/dL (70-110)
[2020-11-29] MEDS: Insulin Lispro 100 UNIT/ML INSULN.PEN SC (22:32)
[2020-11-29] MEDS: Ondansetron 4 MG/2 ML Vial IV (22:32)
[2020-11-29] MEDS: 0.9% Saline Lock 10 ML Syringe IV (22:33)
[2020-11-29 22:51] LABS: Bedside Glucose 153 mg/dL (70-110)
[2020-11-30] VITALS (9 sets, daily range): BP systolic 109–128; BP diastolic 42–74; PULSE 79–92; RESP 16; TEMP 36.3–37.2; O2SAT 95–99
[2020-11-30 06:59] LABS: Absolute Neutrophil Count 4.1 X10^3/uL (2.0-7.7); Basophil# 0.12 X10^3/uL; Basophil% 1.2 % (0-1); Eosinophils% 27.1 % (0-5); Hematocrit 31.6 % (37-47); Hemoglobin 9.7 g/dL (12.0-15.0); Lymphocyte % 15.3 % (19-41); Mean Corp Hgb Conc 30.7 g/dL (32-36); Mean Corpuscular Hgb 26.1 pg (27.0-32.0); Mean Corpuscular Volume 85.2 fL (81-99); Mean Platelet Vol. 9.5 fl (6.2-12.0); Monocyte# 1.34 X10^3/uL; Monocyte% 13.7 % (0-10); NRBC Flagged by Analyzer 0 % (0-5); Neutrophil # 4.14 X10^3/uL (2.7-7.7); Neutrophil % 42.4 % (47-70); POSITIVE DIFFERENTIAL YES; Platelet Count 189 K/mm3 (150-450); RBC Distribution Width CV 17.6 % (11.6-14.6); RBC Distribution Width SD 54.9 fl (35.1-43.9); Red Blood Count 3.71 M/mm3 (4.2-5.4); White Blood Count 9.8 K/mm3 (4.4-11.0)
[2020-11-30 07:00] LABS: Bedside Glucose 109 mg/dL (70-110)
[2020-11-30 07:09] LABS: Differential Indicated SCAN CRITERIA MET; Eosinophil# 2.65 X10^3/uL
[2020-11-30 07:29] LABS: Differential Comment SCANNED
[2020-11-30 07:38] LABS: ALB/GLOB Ratio 0.4 RATIO (0.9-2.4); AST(SGOT) 27 U/L (15-37); Alanine Aminotransfer ALT/SGPT 14 U/L (13-56); Albumin, Serum 1.7 g/dL (3.2-5.0); Alkaline Phosphatase 120 U/L (45-117); Anion Gap 11 (5-15); BUN 55 mg/dL (7-18); BUN/Creat Ratio 16.3 RATIO (10-20); Chloride 110 mmol/L (98-107); Creatinine, Serum 3.38 mg/dL (0.55-1.02); EST Glomerular Filtration Rate 14 mL/min (>60); Est Glom Filt Rate - Afr Amer 17 mL/min (>60); Globulin 3.9 g/dL (2.2-4.2); Glucose 113 mg/dL (74-106); Potassium 3.4 mmol/L (3.5-5.1); Protein, Total 5.6 g/dL (6.4-8.2); Sodium Level 143 mmol/L (136-145)
[2020-11-30] MEDS: Potassium Chloride Oral Tablet 20 MEQ PO (08:08)
[2020-11-30] MEDS: Furosemide 20 MG Tablet PO ×2 (09:18→17:06)
[2020-11-30] MEDS: PARoxetine 10 MG Tablet PO (09:18)
[2020-11-30] MEDS: Lactulose 20 GM/30 ML UDC PO (09:30)
[2020-11-30] MEDS: Insulin Lispro 100 UNIT/ML INSULN.PEN SC ×3 (11:31→22:13)
[2020-11-30 11:35] LABS: Bedside Glucose 179 mg/dL (70-110)
--- NOTE | 2020-11-30 14:36 | PCM.PN.HOSP ---
Subjective Subjective: Patient was seen and examined. No new complaints. Objective Data Objective Data Vital Signs: Vital Signs Temp Pulse Resp BP Pulse Ox 98.9 F 90 16 128/74 H 96 11/30/20 08:11 11/30/20 08:11 11/30/20 08:11 11/30/20 08:11 11/30/20 08:11 Oxygen Delivery Method Room Air Weight: 159 lb 13.362 oz Body Mass Index (BMI) 26.9 Finger Stick Blood Glucose 130 Intake & Output: Intake and Output for Last 24 Hours 11/28/20 11/29/20 11/30/20 23:59 23:59 23:59 Intake Total 1490 / 1490 680 / 790 970 / 970 Output Total 700 / 700 500 / 500 600 / 600 Balance 790 / 790 180 / 290 370 / 370 Lab / Micro Data Result Diagrams: 11/30/20 06:45 11/30/20 06:45 Labs: Laboratory Results - last 24 hr 11/29/20 11/29/20 11/30/20 17:59 22:26 06:45 WBC 9.8 RBC 3.71 L Hgb 9.7 L Hct 31.6 L MCV 85.2 MCH 26.1 L MCHC 30.7 L RDW Std Deviation 54.9 H RDW Coeff of Arielle 17.6 H Plt Count 189 MPV 9.5 Immature Gran % (Auto) 0.300 Neut % (Auto) 42.4 L Lymph % (Auto) 15.3 L [place] % (Auto) 13.7 H Eos % (Auto) 27.1 H Baso % (Auto) 1.2 H Absolute Neuts (auto) 4.1 Absolute Lymphs (auto) 1.50 Nucleated RBC % 0 Differential Comment SCANNED Diff Path Review May foll Sodium Potassium Chloride Carbon Dioxide Anion Gap BUN Creatinine Estim Creat Clear Calc Est GFR (MDRD) Af Amer Est GFR (MDRD) Non-Af BUN/Creatinine Ratio Glucose Calcium Total Bilirubin AST ALT Alkaline Phosphatase Total Protein Albumin Globulin Albumin/Globulin Ratio POC Glucose 134 H 153 H 11/30/20 11/30/20 11/30/20 06:45 06:50 11:28 WBC RBC Hgb Hct MCV MCH MCHC RDW Std Deviation RDW Coeff of Arielle Plt Count MPV Immature Gran % (Auto) Neut % (Auto) Lymph % (Auto) [place] % (Auto) Eos % (Auto) Baso % (Auto) Absolute Neuts (auto) Absolute Lymphs (auto) Nucleated RBC % Differential Comment Diff Path Review Sodium 143 Potassium 3.4 L Chloride 110 H Carbon Dioxide 22.0 Anion Gap 11 BUN 55 H Creatinine 3.38 H Estim Creat Clear Calc 10.70 Est GFR (MDRD) Af Amer 17 L Est GFR (MDRD) Non-Af 14 L BUN/Creatinine Ratio 16.3 Glucose 113 H Calcium 8.0 L Total Bilirubin 0.50 AST 27 ALT 14 Alkaline Phosphatase 120 H Total Protein 5.6 L Albumin 1.7 L Globulin 3.9 Albumin/Globulin Ratio 0.4 L POC Glucose 109 179 H Micro: Microbiology 11/27/20 16:15 Blood Culture (Wb) - Anticubital Right Blood Culture - Preliminary No growth in 48 hours. 11/27/20 16:25 Blood Culture (Wb) - Anticubital Left Blood Culture - Preliminary No growth in 48 hours. 11/27/20 15:10 Urine Catheter - Krueger Urine Culture - Final Escherichia coli 11/27/20 20:00 Stool Stool Occult Blood (BONI) - Final Occult Blood Positive 11/27/20 13:50 Nasal Secretion SARS-CoV-2 Antigen (Rapid) - Final Radiography Diagnostic Testing: Radiology Impression Echocardiogram 11/29/20 15:31 Interpretation Summary The estimated ejection fraction is EF 60-65% %. Normal LV systolic function Grade #I Diastolic function Mild TR RVSP calculate 43.5 mmhg consistent with mild pulmonary Hypertension Ordering Physician: Hetal Munguia Performed By: Yuko Cassidy, BEKA, RVT Physical Exam Const alert, oriented x3 and no apparent distress General Appearance: cooperative HEENT normocephalic, head/scalp atraumatic and moist oral mucous membranes Eyes PERRL, EOMs intact bilaterally and conjunctivae normal Neck no lymphadenopathy, supple, no JVD and no carotid bruits Resp normal respiratory effort and clear to auscultation bilaterally Auscultation: Negative for crackles, rales, rhonchi or wheezes Cardio regular rate, regular rhythm, S1 normal heart sound, S2 normal heart sound, no murmurs and no JVD Peripheral Pulses: pulses 2+ throughout GI normal to inspection, nondistended, normoactive bowel sounds, soft to palpation, non-tender and non-distended; Negative for hepatosplenomegaly Extremity normal to inspection and full ROM General Extremity: edema Skin no rashes or lesions noted and no wounds Neuro oriented x3 and CN's II-XII intact bilaterally Sensorium / Orientation: alert Speech: speech normal Motor Exam: strength 5/5 throughout Psych mental status grossly normal and affect normal Assessment & Plan Assessment/Plan (1) Severe sepsis: Status: Acute Code(s): A41.9 - Sepsis, unspecified organism; R65.20 - Severe sepsis without septic shock (2) Acute kidney injury: Status: Acute Code(s): N17.9 - Acute kidney failure, unspecified (3) Anemia: Status: Acute Code(s): D64.9 - Anemia, unspecified Qualifiers: Anemia type: unspecified type Qualified Code(s): D64.9 - Anemia, unspecified (4) Urinary tract infection: Status: Acute Code(s): N39.0 - Urinary tract infection, site not specified Qualifiers: Urinary tract infection type: acute cystitis Hematuria presence: without hematuria Qualified Code(s): N30.00 - Acute cystitis without hematuria (5) Cirrhosis of liver: Status: Ruled-out Code(s): K74.60 - Unspecified cirrhosis of liver Qualifiers: Hepatic cirrhosis type: unspecified hepatic cirrhosis Ascites presence: with ascites Qualified Code(s): K74.60 - Unspecified cirrhosis of liver; R18.8 - Other ascites (6) Dysphagia: Status: Acute Code(s): R13.10 - Dysphagia, unspecified (7) GI bleed: Status: Resolved Code(s): K92.2 - Gastrointestinal hemorrhage, unspecified Qualifiers: GI bleed type/associated pathology: unspecified gastrointestinal hemorrhage type Qualified Code(s): K92.2 - Gastrointestinal hemorrhage, unspecified (8) Acute hepatic encephalopathy: Status: Resolved Code(s): K72.00 - Acute and subacute hepatic failure without coma (9) Ascites: Status: Chronic Code(s): R18.8 - Other ascites Plan: No definite GI bleed seen; stool for occult blood is positive. Hemoglobin has been stable 2D echo shows EF of 60 to 65%, stage I diastolic dysfunction, mild pulmonary hypertension with RVSP of 43.5 Ultrasound of the liver was not suggestive of liver cirrhosis Continue on pureed diet; speech therapy following Discontinue IV ceftriaxone; switch to p.o. cefdinir Will give extra potassium 40mEq x 1 today, continue on Lasix p.o. 20mg twice daily, continue with lactulose Keven wraps to the legs. PT/OT to evaluate and treat Repeat blood work in a.m.?CBCD and renal panel Discharge planning in the works; social work following Visit Charges Inpatient E&M: 89161 Subs Hosp L2
[2020-11-30 16:06] LABS: Bedside Glucose 217 mg/dL (70-110)
[2020-11-30] MEDS: Potassium Chloride Oral Tablet 20 MEQ 40 MEQ PO (18:18)
[2020-11-30] MEDS: Acetaminophen 325 MG Tablet 650 MG PO (18:19)
[2020-11-30 22:00] LABS: Bedside Glucose 169 mg/dL (70-110)
[2020-11-30] MEDS: 0.9% Saline Lock 10 ML Syringe IV (22:15)
[2020-12-01] VITALS (10 sets, daily range): BP systolic 104–127; BP diastolic 40–54; PULSE 82–95; RESP 14–18; TEMP 36.6–37.1; O2SAT 95–98
[2020-12-01 06:16] LABS: Absolute Lymphocyte Count 1.07 X10^3/uL (0.83-4.51); Absolute Neutrophil Count 4.2 X10^3/uL (2.0-7.7); Basophil# 0.09 X10^3/uL; Eosinophils% 28.8 % (0-5); Hematocrit 31.6 % (37-47); Hemoglobin 9.9 g/dL (12.0-15.0); Lymphocyte # 1.07 X10^3/ul (0.83-4.51); Lymphocyte % 11.6 % (19-41); Mean Corp Hgb Conc 31.3 g/dL (32-36); Mean Corpuscular Hgb 26.6 pg (27.0-32.0); Mean Corpuscular Volume 84.9 fL (81-99); Mean Platelet Vol. 9.4 fl (6.2-12.0); NRBC Flagged by Analyzer 0 % (0-5); Neutrophil # 4.23 X10^3/uL (2.7-7.7); Neutrophil % 46.1 % (47-70); POSITIVE DIFFERENTIAL YES; Platelet Count 150 K/mm3 (150-450); RBC Distribution Width CV 17.7 % (11.6-14.6); RBC Distribution Width SD 54.8 fl (35.1-43.9); Red Blood Count 3.72 M/mm3 (4.2-5.4); White Blood Count 9.2 K/mm3 (4.4-11.0)
[2020-12-01 06:20] LABS: Differential Indicated SCAN CRITERIA MET; Eosinophil# 2.65 X10^3/uL
[2020-12-01 06:35] LABS: Differential Comment SCANNED; Microcytosis RARE; Ovalocyte RARE
[2020-12-01 06:41] LABS: Bedside Glucose 104 mg/dL (70-110)
[2020-12-01 06:41] LABS: Albumin, Serum 1.7 g/dL (3.2-5.0); BUN 52 mg/dL (7-18); BUN/Creat Ratio 15.7 RATIO (10-20); Calcium,Total 7.9 mg/dL (8.5-10.1); Chloride 109 mmol/L (98-107); Creatinine, Serum 3.31 mg/dL (0.55-1.02); EST Glomerular Filtration Rate 14 mL/min (>60); Est Glom Filt Rate - Afr Amer 17 mL/min (>60); Estimated Creatinine Clearance 10.93 ml/min; Glucose 100 mg/dL (74-106); Phosphorus 3.9 mg/dL (2.5-4.9); Potassium 3.6 mmol/L (3.5-5.1); Sodium Level 140 mmol/L (136-145)
[2020-12-01] MEDS: Potassium Chloride Oral Tablet 20 MEQ PO (07:37)
[2020-12-01] MEDS: Lactulose 20 GM/30 ML UDC PO (09:37)
[2020-12-01] MEDS: PARoxetine 10 MG Tablet PO (09:37)
[2020-12-01] MEDS: Cefdinir 300 MG Capsule PO (09:38)
[2020-12-01] MEDS: Furosemide 20 MG Tablet PO ×2 (09:38→17:00)
[2020-12-01 11:21] LABS: Bedside Glucose 139 mg/dL (70-110)
--- NOTE | 2020-12-01 14:06 | PCM.PN.HOSP ---
Documented by User: Jose SIMMS 12/01/20 14:13 Subjective Subjective: Patient is an 85-year-old female comfortably resting in bed, alert and orient x3. Denies chest pain, shortness of breath, palpitations, fever, chills, N/V/D. Objective Data Objective Data Vital Signs: Vital Signs Temp Pulse Resp BP Pulse Ox 98.4 F 86 16 110/40 L 95 12/01/20 09:32 12/01/20 09:32 12/01/20 09:32 12/01/20 09:32 12/01/20 09:32 Oxygen Delivery Method Room Air Weight: 160 lb 14.999 oz Body Mass Index (BMI) 26.9 Finger Stick Blood Glucose 130 Intake & Output: Intake and Output for Last 24 Hours 11/29/20 11/30/20 12/01/20 23:59 23:59 23:59 Intake Total 680 / 790 1200 / 1200 650 / 650 Output Total 500 / 500 725 / 725 200 / 200 Balance 180 / 290 475 / 475 450 / 450 Lab / Micro Data Result Diagrams: 12/01/20 06:05 12/01/20 06:05 Labs: Laboratory Results - last 24 hr 11/27/20 11/30/20 11/30/20 15:40 15:59 21:53 WBC RBC Hgb Hct MCV MCH MCHC RDW Std Deviation RDW Coeff of Arielle Plt Count MPV Immature Gran % (Auto) Neut % (Auto) Lymph % (Auto) [place] % (Auto) Eos % (Auto) Baso % (Auto) Absolute Neuts (auto) Absolute Lymphs (auto) Nucleated RBC % Differential Comment Diff Path Review Microcytosis Ovalocytes Sodium Potassium Chloride Carbon Dioxide BUN Creatinine Estim Creat Clear Calc Est GFR (MDRD) Af Amer Est GFR (MDRD) Non-Af BUN/Creatinine Ratio Glucose Calcium Phosphorus Albumin POC Glucose 217 H 169 H Crossmatch See Detail 12/01/20 12/01/20 12/01/20 06:05 06:05 06:33 WBC 9.2 RBC 3.72 L Hgb 9.9 L Hct 31.6 L MCV 84.9 MCH 26.6 L MCHC 31.3 L RDW Std Deviation 54.8 H RDW Coeff of Arielle 17.7 H Plt Count 150 MPV 9.4 Immature Gran % (Auto) 0.500 Neut % (Auto) 46.1 L Lymph % (Auto) 11.6 L [place] % (Auto) 12.0 H Eos % (Auto) 28.8 H Baso % (Auto) 1.0 Absolute Neuts (auto) 4.2 Absolute Lymphs (auto) 1.07 Nucleated RBC % 0 Differential Comment SCANNED Diff Path Review May foll Microcytosis RARE Ovalocytes RARE Sodium 140 Potassium 3.6 Chloride 109 H Carbon Dioxide 22.0 BUN 52 H Creatinine 3.31 H Estim Creat Clear Calc 10.93 Est GFR (MDRD) Af Amer 17 L Est GFR (MDRD) Non-Af 14 L BUN/Creatinine Ratio 15.7 Glucose 100 Calcium 7.9 L Phosphorus 3.9 Albumin 1.7 L POC Glucose 104 Crossmatch 12/01/20 11:09 WBC RBC Hgb Hct MCV MCH MCHC RDW Std Deviation RDW Coeff of Arielle Plt Count MPV Immature Gran % (Auto) Neut % (Auto) Lymph % (Auto) [place] % (Auto) Eos % (Auto) Baso % (Auto) Absolute Neuts (auto) Absolute Lymphs (auto) Nucleated RBC % Differential Comment Diff Path Review Microcytosis Ovalocytes Sodium Potassium Chloride Carbon Dioxide BUN Creatinine Estim Creat Clear Calc Est GFR (MDRD) Af Amer Est GFR (MDRD) Non-Af BUN/Creatinine Ratio Glucose Calcium Phosphorus Albumin POC Glucose 139 H Crossmatch Micro: Microbiology 11/27/20 16:15 Blood Culture (Wb) - Anticubital Right Blood Culture - Preliminary No growth in 48 hours. 11/27/20 16:25 Blood Culture (Wb) - Anticubital Left Blood Culture - Preliminary No growth in 48 hours. 11/27/20 15:10 Urine Catheter - Krueger Urine Culture - Final Escherichia coli 11/27/20 20:00 Stool Stool Occult Blood (BONI) - Final Occult Blood Positive 11/27/20 13:50 Nasal Secretion SARS-CoV-2 Antigen (Rapid) - Final Physical Exam Narrative See subjective. Const alert, oriented x3 and no apparent distress HEENT head/scalp atraumatic Head and Scalp: normocephalic Eyes EOMs intact bilaterally Neck no lymphadenopathy and no JVD Resp normal respiratory effort and no retractions Cardio regular rate, regular rhythm, no murmurs and no rub GI normal to inspection, nondistended, normoactive bowel sounds, soft to palpation and non-tender Extremity normal to inspection and full ROM Skin no rashes or lesions noted and no wounds Neuro CN's II-XII intact bilaterally Psych affect normal Assessment & Plan Assessment/Plan (1) Severe sepsis: Status: Acute Code(s): A41.9 - Sepsis, unspecified organism; R65.20 - Severe sepsis without septic shock Plan: Attempted to initiate a disposition conversation with patient today. Patient's current understanding is that she is post to go to care home facility when released from hospital. Patient is adamant that she does not want to be placed on hospice and refuses to have a conversation about. Patient told this provider to leave the room and not to have a hospice discussion with her, as it upsets her. Attempting to contact patient's designated power of research attorney. (2) Acute kidney injury: Status: Acute Code(s): N17.9 - Acute kidney failure, unspecified (3) Anemia: Status: Acute Code(s): D64.9 - Anemia, unspecified Qualifiers: Anemia type: unspecified type Qualified Code(s): D64.9 - Anemia, unspecified (4) Urinary tract infection: Status: Acute Code(s): N39.0 - Urinary tract infection, site not specified Qualifiers: Hematuria presence: without hematuria Urinary tract infection type: acute cystitis Qualified Code(s): N30.00 - Acute cystitis without hematuria (5) Cirrhosis of liver: Status: Ruled-out Code(s): K74.60 - Unspecified cirrhosis of liver Qualifiers: Ascites presence: with ascites Hepatic cirrhosis type: unspecified hepatic cirrhosis Qualified Code(s): K74.60 - Unspecified cirrhosis of liver; R18.8 - Other ascites (6) Dysphagia: Status: Acute Code(s): R13.10 - Dysphagia, unspecified (7) GI bleed: Status: Resolved Code(s): K92.2 - Gastrointestinal hemorrhage, unspecified Qualifiers: GI bleed type/associated pathology: unspecified gastrointestinal hemorrhage type Qualified Code(s): K92.2 - Gastrointestinal hemorrhage, unspecified (8) Acute hepatic encephalopathy: Status: Resolved Code(s): K72.00 - Acute and subacute hepatic failure without coma (9) Ascites: Status: Chronic Code(s): R18.8 - Other ascites Documented by User: Dr. Hetal Munguia MD 12/01/20 16:01 Objective Data Lab / Micro Data Result Diagrams: 12/01/20 06:05 12/01/20 06:05 Addendum Addendum: This patient was seen in conjunction with DEMI Daly. I have independently interviewed and examined the patient and reviewed pertinent historical, laboratory, and other data. Please refer to DEMI Daly's note for his patient's presentation, findings, and recommendations. I have reviewed and his note and concur with his documentation Patient was seen and examined. No new complaints. She admitted that she has history of nonalcoholic fatty liver disease/cirrhosis. She has not seen a doctor in 7 years. She did not want any aggressive treatment. She is aware she has liver problems as well as kidney issues. She confirmed that her CODE STATUS is DNR CCA. She was open to palliative care but not to hospice. Physical Exam: Gen: Appears frail, pale, not jaundiced CVS:HS I +II, regular, no murmurs RESP: Diminished at lung bases GI: BS present and normal, soft, nontender, no palpable organs EXT:No edema ASSESSMENT: 1. Severe sepsis secondary to E. coli UTI 2. DURAN 3. Anemia, likely secondary to chronic, ? Acute blood loss 4. Ascites 5. Nonalcoholic liver cirrhosis; ultrasound report has been conflicting with CT scan of the abdomen and pelvis 6. Dysphagia 7. GI bleed Plan: Awaiting discharge to care home facility Patient should be followed by palliative care She needs outpatient GI consult for work-up for anemia and dysphagia She should continue on. Diet, speech therapy to follow also in the outpatient Continue cefdinir to complete 1 week Continue on Lasix, Keven wraps to the legs Diagnostic paracentesis in a.m. INR, CBCD, CMP, LDH in a.m. Visit Charges Inpatient E&M: 71654 Subs Hosp L2
[2020-12-01] MEDS: Insulin Lispro 100 UNIT/ML INSULN.PEN SC (16:40)
[2020-12-01 17:06] LABS: Bedside Glucose 175 mg/dL (70-110)
[2020-12-01] MEDS: Ammonium Lactate 225 gm Bottle 1 APPLIC TOPICAL (21:37)
[2020-12-01] MEDS: 0.9% Saline Lock 10 ML Syringe IV (21:41)
[2020-12-01 21:50] LABS: Bedside Glucose 138 mg/dL (70-110)
[2020-12-02] VITALS (11 sets, daily range): BP systolic 95–122; BP diastolic 35–66; PULSE 76–98; RESP 14–18; TEMP 36.9–37.1; O2SAT 94–100
--- NOTE | 2020-12-02 | FLU_PTH ---
PATIENT: ALYSSIA GUO LOC: [facility] U#:[id number] AGE/SX: 85/F ROOM: [place] [facility] RE11/27/[address]: Dr. Ayesha Cerna MD : [id number] BED: 1 DIS: 12/05/2020 SPEC #: [id number] RECD: 12/02/20 08:00 STATUS: SUSANNE DAVID #: [id number] MARCELLE: 12/02/20 00:[address]: Ayesha Cerna DEPT: CYTOLOGY RECD BY: Theo Cloud ENTERED: 12/03/20 08:00 SP TYPE: Fluid OTHR DR: MD Dr. Sung Amezquita, DO MD Amber Dockery, GLASS FITTER-C Tissues: PARACENTESIS FLUID Procedures: Special Stain Group II Surgery Specimen Level IV Cytospin Fluid HEADER OPERATION: Paracentesis PRE-OP DIAGNOSIS: Ascites / cirrhosis TISSUE SUBMITTED: Paracentesis fluid for cytology DIAGNOSIS CYTOLOGY Paracentesis fluid for cytology (cytospin and cell block): Negative for malignant cells. AM:bibiana 12/04/2020 CYTOLOGY STUDY Slides are reviewed. CYTOLOGY GROSS Received is 70 ml of yellow cloudy fluid labeled with the patient's name and and designated per the requisition as paracentesis. Submitted for cytology preparation including cell block. / bibiana 12/03/2020 TC:5 CPT: 94222, 73581
--- NOTE | 2020-12-02 05:00 | US_ITS ---
PROCEDURE: Ultrasound guided paracentesis. DATE OF EXAMINATION: 12/02/2020. INDICATION: Female, 85 years old. Ascites. PHYSICIAN: Arnulfo Ahmadi M.D. TECHNIQUE: The risks, benefits, and alternatives to the procedure were explained to the patient. The specific risks of bleeding, infection, and damage to bowel were detailed and accepted. Witnessed informed consent was obtained. The abdomen was ultrasonographically surveyed. An appropriate pocket of fluid was identified at the right lower quadrant. The skin were cleaned and prepped in the usual sterile fashion. Using ultrasound guidance, the peritoneal cavity was accessed with a 5-[place] paracentesis needle/catheter system. The trocar was removed. A total of 6750 ml of light ashley-colored fluid were removed from the peritoneal cavity. A 100 mL sample was sent to the laboratory. The catheter was removed and a sterile dressing was applied. The procedure was well tolerated. US/Paracentesis with US IMPRESSION: Ultrasound guided paracentesis. Electronically Signed: Arnulfo Ahmadi MD at 14:57 EDT , Service support ,
[2020-12-02 06:45] LABS: Absolute Lymphocyte Count 1.02 X10^3/uL (0.83-4.51); Absolute Neutrophil Count 5.8 X10^3/uL (2.0-7.7); Basophil# 0.11 X10^3/uL; Eosinophils% 24.4 % (0-5); Hematocrit 31.9 % (37-47); Hemoglobin 9.6 g/dL (12.0-15.0); Lymphocyte # 1.02 X10^3/ul (0.83-4.51); Mean Corp Hgb Conc 30.1 g/dL (32-36); Mean Corpuscular Hgb 25.8 pg (27.0-32.0); Mean Corpuscular Volume 85.8 fL (81-99); Mean Platelet Vol. 9.9 fl (6.2-12.0); Monocyte% 14.1 % (0-10); NRBC Flagged by Analyzer 0 % (0-5); Neutrophil # 5.78 X10^3/uL (2.7-7.7); POSITIVE DIFFERENTIAL YES; Platelet Count 126 K/mm3 (150-450); RBC Distribution Width CV 18.1 % (11.6-14.6); RBC Distribution Width SD 56.8 fl (35.1-43.9); Red Blood Count 3.72 M/mm3 (4.2-5.4); White Blood Count 11.3 K/mm3 (4.4-11.0)
[2020-12-02 06:48] LABS: Differential Indicated SCAN CRITERIA MET; Eosinophil# 2.77 X10^3/uL
[2020-12-02 06:50] LABS: Bedside Glucose 133 mg/dL (70-110)
[2020-12-02 06:51] LABS: International Normalized Ratio 1.5; Prothrombin Time (Protime)PT. 17.1 SECONDS (11.7-14.9)
[2020-12-02 07:11] LABS: ALB/GLOB Ratio 0.4 RATIO (0.9-2.4); AST(SGOT) 35 U/L (15-37); Alanine Aminotransfer ALT/SGPT 13 U/L (13-56); Albumin, Serum 1.7 g/dL (3.2-5.0); Alkaline Phosphatase 121 U/L (45-117); Anion Gap 12 (5-15); BUN 52 mg/dL (7-18); BUN/Creat Ratio 15.8 RATIO (10-20); Calcium,Total 7.8 mg/dL (8.5-10.1); Chloride 104 mmol/L (98-107); EST Glomerular Filtration Rate 14 mL/min (>60); Est Glom Filt Rate - Afr Amer 17 mL/min (>60); Estimated Creatinine Clearance 10.96 ml/min; Glucose 117 mg/dL (74-106); LDH 359 U/L (84-246); Potassium 3.5 mmol/L (3.5-5.1); Protein, Total 5.7 g/dL (6.4-8.2); Sodium Level 138 mmol/L (136-145)
--- NOTE | 2020-12-02 08:15 | CASEMGMT ---
SW called and left a message for W inquiring as to whether or not they will accept pt. GENIE will continue to follow. ELIZABETH Pastor
[2020-12-02] MEDS: Cefdinir 300 MG Capsule PO (09:08)
[2020-12-02] MEDS: Potassium Chloride Oral Tablet 20 MEQ PO (09:08)
[2020-12-02] MEDS: PARoxetine 10 MG Tablet PO (09:08)
[2020-12-02] MEDS: Furosemide 20 MG Tablet PO (09:08)
--- NOTE | 2020-12-02 10:51 | CASEMGMT ---
Addendum entered by Adrianne Hou 12/02/20 13:40: SW spoke w/Rachel Alvarez, let her know [facility] can take pt and that they are working on precert. SW also let Rachel know pt did need encouragement to participate in therapy, and explained pt needs to participate in therapy in order for us to have [employer] consider covering SNF and giving a precert. SW explained wanted to let Rachel know this in the event pt may speak w/her about it. SW also let her know that the physician is recommending palliative care, reviewed palliative care w/Rachel. She is in agreement w/pt seeing palliative at [facility]. SW will continue to follow, waiting for precert for pt to go to [facility]. ELIZABETH Pastor Addendum entered by Adrianne Hou 12/02/20 11:40: SW faxed updated therapy notes to [facility]. ELIZABETH Pastor Original Note: SW spoke w/Brigitte at [facility], she states they can take pt, just needs updated therapy notes. Pt declined to participate in therapy on Wednesday, and she did not see therapy on Wednesday. SW spoke w/pt, encouraging her to participate in therapy so SW can send the PT/OT notes to try to get precert from insurance. Pt agreeable to participate in therapy today. Pt thought she would just need to participate in therapy at [facility], not here. SW explained that in order for insurance to cover some time at [facility], notes from here need to be sent to insurance. SW explained if she does not participate here, her insurance is not going to cover her for therapy at [facility]. Pt states Rachel never told me that. After some discussion pt did agree to participate in therapy, SW let PT/OT know. SW called Rachel Alvarez, who is from this SW's understanding now pt's POA. Message left to call this SW back. SW will continue to follow. ELIZABETH Pastor
[2020-12-02 11:56] LABS: Bedside Glucose 158 mg/dL (70-110)
--- NOTE | 2020-12-02 13:33 | PN.HOSP_ITS ---
Documented by User: Jose SIMMS 12/02/20 13:44 Subjective Subjective: Patient is an 85-year-old female comfortably resting in bed, alert and oriented x3. Patient has developed no new complaints over the past 24 hours, however just reports feeling cold. Denies chest pain, shortness of breath, palpitations, fever, chills, N/V/D. Objective Data Objective Data Vital Signs: Vital Signs Temp Pulse Resp BP Pulse Ox 98.5 F 98 14 105/50 L 95 12/02/20 08:58 12/02/20 11:39 12/02/20 08:58 12/02/20 08:58 12/02/20 08:58 Oxygen Delivery Method Room Air Weight: 162 lb 7.691 oz Body Mass Index (BMI) 26.9 Finger Stick Blood Glucose 130 Intake & Output: Intake and Output for Last 24 Hours 11/30/20 12/01/20 12/02/20 23:59 23:59 23:59 Intake Total 1200 / 1200 1360 / 1360 860 / 860 Output Total 725 / 725 550 / 550 200 / 200 Balance 475 / 475 810 / 810 660 / 660 Lab / Micro Data Result Diagrams: 12/02/20 05:45 12/02/20 05:45 Labs: Laboratory Results - last 24 hr 12/01/20 12/01/20 12/02/20 16:39 21:35 05:45 WBC 11.3 H RBC 3.72 L Hgb 9.6 L Hct 31.9 L MCV 85.8 MCH 25.8 L MCHC 30.1 L RDW Std Deviation 56.8 H RDW Coeff of Arielle 18.1 H Plt Count 126 L MPV 9.9 Immature Gran % (Auto) 0.500 Neut % (Auto) 51.0 Lymph % (Auto) 9.0 L Yell % (Auto) 14.1 H Eos % (Auto) 24.4 H Baso % (Auto) 1.0 Absolute Neuts (auto) 5.8 Absolute Lymphs (auto) 1.02 Nucleated RBC % 0 Diff Path Review May foll PT INR Sodium Potassium Chloride Carbon Dioxide Anion Gap BUN Creatinine Estim Creat Clear Calc Est GFR (MDRD) Af Amer Est GFR (MDRD) Non-Af BUN/Creatinine Ratio Glucose Calcium Total Bilirubin AST ALT Alkaline Phosphatase Lactate Dehydrogenase Total Protein Albumin Globulin Albumin/Globulin Ratio POC Glucose 175 H 138 H 12/02/20 12/02/20 12/02/20 05:45 05:45 06:41 WBC RBC Hgb Hct MCV MCH MCHC RDW Std Deviation RDW Coeff of Arielle Plt Count MPV Immature Gran % (Auto) Neut % (Auto) Lymph % (Auto) Yell % (Auto) Eos % (Auto) Baso % (Auto) Absolute Neuts (auto) Absolute Lymphs (auto) Nucleated RBC % Diff Path Review PT 17.1 H INR 1.5 Sodium 138 Potassium 3.5 Chloride 104 Carbon Dioxide 22.0 Anion Gap 12 BUN 52 H Creatinine 3.30 H Estim Creat Clear Calc 10.96 Est GFR (MDRD) Af Amer 17 L Est GFR (MDRD) Non-Af 14 L BUN/Creatinine Ratio 15.8 Glucose 117 H Calcium 7.8 L Total Bilirubin 0.60 AST 35 ALT 13 Alkaline Phosphatase 121 H Lactate Dehydrogenase 359 H Total Protein 5.7 L Albumin 1.7 L Globulin 4.0 Albumin/Globulin Ratio 0.4 L POC Glucose 133 H 12/02/20 11:51 WBC RBC Hgb Hct MCV MCH MCHC RDW Std Deviation RDW Coeff of Arielle Plt Count MPV Immature Gran % (Auto) Neut % (Auto) Lymph % (Auto) Yell % (Auto) Eos % (Auto) Baso % (Auto) Absolute Neuts (auto) Absolute Lymphs (auto) Nucleated RBC % Diff Path Review PT INR Sodium Potassium Chloride Carbon Dioxide Anion Gap BUN Creatinine Estim Creat Clear Calc Est GFR (MDRD) Af Amer Est GFR (MDRD) Non-Af BUN/Creatinine Ratio Glucose Calcium Total Bilirubin AST ALT Alkaline Phosphatase Lactate Dehydrogenase Total Protein Albumin Globulin Albumin/Globulin Ratio POC Glucose 158 H Micro: Microbiology 11/27/20 16:15 Blood Culture (Wb) - Anticubital Right Blood Culture - Preliminary No growth in 48 hours. 11/27/20 16:25 Blood Culture (Wb) - Anticubital Left Blood Culture - Preliminary No growth in 48 hours. 11/27/20 15:10 Urine Catheter - Krueger Urine Culture - Final Escherichia coli 11/27/20 20:00 Stool Stool Occult Blood (BONI) - Final Occult Blood Positive 11/27/20 13:50 Nasal Secretion SARS-CoV-2 Antigen (Rapid) - Final Physical Exam Narrative See subjective. Const alert, oriented x3 and no apparent distress HEENT head/scalp atraumatic Head and Scalp: normocephalic Eyes EOMs intact bilaterally Neck no lymphadenopathy, supple and no JVD Resp normal respiratory effort and no retractions Cardio regular rate, regular rhythm, no murmurs and no rub GI Palpation: firm, tender and tense ascites Extremity full ROM Skin no rashes or lesions noted, no wounds and no jaundice Neuro CN's II-XII intact bilaterally Psych affect normal Assessment & Plan Assessment/Plan (1) Severe sepsis: Status: Acute Code(s): A41.9 - Sepsis, unspecified organism; R65.20 - Severe sepsis without septic shock (2) Ascites: Status: Chronic Code(s): R18.8 - Other ascites (3) Cirrhosis of liver: Status: Ruled-out Code(s): K74.60 - Unspecified cirrhosis of liver Qualifiers: Ascites presence: with ascites Hepatic cirrhosis type: unspecified hepatic cirrhosis Qualified Code(s): K74.60 - Unspecified cirrhosis of liver; R18.8 - Other ascites (4) GI bleed: Status: Resolved Code(s): K92.2 - Gastrointestinal hemorrhage, unspecified Qualifiers: GI bleed type/associated pathology: unspecified gastrointestinal he morrhage type Qualified Code(s): K92.2 - Gastrointestinal hemorrhage, unsp ecified (5) Dysphagia: Status: Acute Code(s): R13.10 - Dysphagia, unspecified (6) DURAN (acute kidney injury): Status: Acute Code(s): N17.9 - Acute kidney failure, unspecified Plan: No change from yesterday. Currently awaiting discharged to [facility]. client delivery manager spoke to patient CHOLO, and it was decided that the hospice/palliative care discussion would take place while the patient was [facility] the [facility] as to not overwhelm her with decisions. Continue Lasix, eliajh wraps to legs, Cefdinir, trend INR, CBC, CMP and LDH. Documented by User: Dr. Ayesha Cerna MD 12/02/20 16:27 Objective Data Lab / Micro Data Result Diagrams: 12/02/20 05:45 12/02/20 05:45 Addendum Patient seen by Jose Kasper PA-C under my supervision Patient seen and examined. She had no complaints this morning. She is agreeable to going to pen[facility]iary facility and is willing to have palliative consult but absolutely refuses hospice consult. Review of systems otherwise n egative. O/E: Const alert, oriented x3 and no apparent distress HEENT head/scalp atraumatic Head and Scalp: normocephalic Eyes EOMs intact bilaterally Neck no lymphadenopathy, supple and no JVD Resp normal respiratory effort and no retractions Cardio regular rate, regular rhythm, no murmurs and no rub GI Palpation: firm, tender and tense ascites Extremity full ROM Skin no rashes or lesions noted, no wounds and no jaundice Neuro CN's II-XII intact bilaterally Psych affect normal Patient is currently awaiting discharge to [facility]. Patient also have palliative care consulted per discussion between patient's POA and rn case manager hospice, it was decided that the palliative care consultation should take place once patient is in the penitentiary facility in order not to overwhelm her with decisions. Blood pressure is running low so we will hold Lasix for today. Continue cefdinir. Rest as per Jose Kasper PA-C's note, which I have reviewed and endorsed.
[2020-12-02 13:43] LABS: Pathologist Review Reviewed
[2020-12-02 13:46] LABS: Pathologist Review Reviewed
[2020-12-02 13:47] LABS: Pathologist Review Reviewed
[2020-12-02 14:53] LABS: Body Fluid Mononuclear WBC # 0.036 10^3/uL; Body Fluid Mononuclear WBC % 48.6 %; Body Fluid Polynuclear WBC # 0.038 10^3/uL; Body Fluid Polynuclear WBC % 51.4 %; Body Fluid Total Cells Counted 0.083 10^3/ul; White Blood Count/Body Fluid 0.074 10^3/uL
--- NOTE | 2020-12-02 15:19 | CASEMGMT ---
Pt to dc to SNF. On SNF sheet SW to add that pt met criteria for Palliative Care with [facility] Palliative Care Screening Tool.
[2020-12-02] MEDS: Pantoprazole Sodium 40 MG Tablet PO ×2 (15:37→21:38)
--- NOTE | 2020-12-02 16:04 | CASEMGMT ---
Precert has not yet been attained. SW let pt know that we have not attained precert yet from her insurance, and we are hopeful that it will come through tomorrow. Pt states understanding. SW will follow up tomorrow with Smarr, did call now and left a message to follow up w/Shy or this SW tomorrow. ELIZABETH Pastor
[2020-12-02 16:48] LABS: Glucose, Body Fluid 157 mg/dL (40-70); LDH,Body Fluid 38 Units/l (Not Establ.); Protein, Body Fluid 0.6 g/dL (Not Establ.)
[2020-12-02 16:51] LABS: Auto B Fluid Analyzer BKGD Ct COUNTS W/IN LIMITS (W/IN LIMITS)
[2020-12-02 16:52] LABS: Appearance/Body Fluid SL CLDY; Source- Body Fluid OTHER
[2020-12-02 16:53] LABS: Color/Body Fluid LT YEL; Lymphocytes 6 %; Monocytes 15 %; Red Cell Count/Body Fluid < 0 /mm3
[2020-12-02 16:55] LABS: Body Fluid QC Type(s) BF1Q; Neutrophil (Segs) 70 %; Other Cell Type/BF 9 %
[2020-12-02 17:21] LABS: Bedside Glucose 118 mg/dL (70-110)
[2020-12-02 22:25] LABS: Bedside Glucose 119 mg/dL (70-110)
[2020-12-03] VITALS (10 sets, daily range): BP systolic 83–111; BP diastolic 40–50; PULSE 76–87; RESP 14–18; TEMP 36.1–37.1; O2SAT 92–97
[2020-12-03 06:56] LABS: Bedside Glucose 95 mg/dL (70-110)
[2020-12-03 08:05] LABS: ALB/GLOB Ratio 0.4 RATIO (0.9-2.4); AST(SGOT) 38 U/L (15-37); Alanine Aminotransfer ALT/SGPT 15 U/L (13-56); Albumin, Serum 1.4 g/dL (3.2-5.0); Alkaline Phosphatase 136 U/L (45-117); Anion Gap 8 (5-15); BUN 48 mg/dL (7-18); BUN/Creat Ratio 15.7 RATIO (10-20); Calcium,Total 7.7 mg/dL (8.5-10.1); Chloride 107 mmol/L (98-107); Creatinine, Serum 3.06 mg/dL (0.55-1.02); EST Glomerular Filtration Rate 15 mL/min (>60); Est Glom Filt Rate - Afr Amer 19 mL/min (>60); Estimated Creatinine Clearance 11.82 ml/min; Globulin 3.6 g/dL (2.2-4.2); Glucose 87 mg/dL (74-106); Potassium 3.8 mmol/L (3.5-5.1); Sodium Level 139 mmol/L (136-145)
[2020-12-03] MEDS: Potassium Chloride Oral Tablet 20 MEQ PO (09:33)
[2020-12-03] MEDS: Pantoprazole Sodium 40 MG Tablet PO ×2 (09:33→21:40)
[2020-12-03] MEDS: Cefdinir 300 MG Capsule PO (09:33)
[2020-12-03] MEDS: PARoxetine 10 MG Tablet PO (09:34)
[2020-12-03] MEDS: DiphenhydrAMINE 25 MG Capsule PO ×2 (09:42→21:44)
[2020-12-03 12:06] LABS: Bedside Glucose 137 mg/dL (70-110)
[2020-12-03 12:55] LABS: Pathologist Comment/Body Fluid Reviewed
--- NOTE | 2020-12-03 14:19 | CASEMGMT ---
Addendum entered by Shy Rose 12/03/20 15:07: Updated therapy notes faxed to [facility]. Shy PEREZ Original Note: GENIE received a call from Newton at [facility] and insurance would like therapy notes from today. There currently are no therapy notes in the computer from today. Once in computer GENIE will fax to [facility]. Shy PEREZ
--- NOTE | 2020-12-03 14:32 | PCM.PN.HOSP ---
Documented by User: Jose SIMMS 12/03/20 14:36 Subjective Subjective: Patient is an 85-year-old female comfortably resting in bed, alert and orient x3. Other than being chronically cold patient has developed no symptoms from yesterday. Denies chest pain, shortness of breath, palpitations, fever, chills, N/V/D. Patient request that any decisions regarding her disposition will be deferred to her power of collections attorney. Objective Data Objective Data Vital Signs: Vital Signs Temp Pulse Resp BP Pulse Ox 98.3 F 79 18 102/50 L 96 12/03/20 08:45 12/03/20 11:18 12/03/20 08:45 12/03/20 08:45 12/03/20 08:45 Oxygen Flow Rate (L/min) [2] 16 Oxygen Delivery Method [3] Room Air Oxygen Delivery Method [2] Room Air Oxygen Delivery Method [1 ( Room Air Initial Baseline)] Oxygen Delivery Method Room Air Weight: 148 lb 9.465 oz Body Mass Index (BMI) 26.9 Finger Stick Blood Glucose 130 Intake & Output: Intake and Output for Last 24 Hours 12/01/20 12/02/20 12/03/20 23:59 23:59 23:59 Intake Total 1360 / 1360 860 / 860 200 / 200 Output Total 550 / 550 6950 / 6950 150 / 150 Balance 810 / 810 -6090 / -6090 50 / 50 Lab / Micro Data Result Diagrams: 12/02/20 05:45 12/03/20 06:50 Labs: Laboratory Results - last 24 hr 12/02/20 12/02/20 12/02/20 14:15 14:15 17:14 Sodium Potassium Chloride Carbon Dioxide Anion Gap BUN Creatinine Estim Creat Clear Calc Est GFR (MDRD) Af Amer Est GFR (MDRD) Non-Af BUN/Creatinine Ratio Glucose Calcium Total Bilirubin AST ALT Alkaline Phosphatase Total Protein Albumin Globulin Albumin/Globulin Ratio Fluid Source OTHER Fluid Color LT YEL Fluid Appearance SL CLDY Fluid WBC 0.074 Fluid RBC < 0 Fluid Tot Cell Count 0.083 H Fld Polynuclear WBCs # 0.038 Fld Polynuclear WBCs % 51.4 Fluid Mononuclear WBCs 0.036 Fld Mononuclear WBCs % 48.6 Fluid Neutrophils 70 Fluid Lymphocytes 6 Fluid Monocytes 15 Fluid Other Cells 9 Fl Pathologist Comment Reviewed Fluid Glucose 157 H Fluid Total Protein 0.6 Fluid LDH 38 Fluid Comment 2 Not Reportable POC Glucose 118 H 12/02/20 12/03/20 12/03/20 22:00 06:19 06:50 Sodium 139 Potassium 3.8 Chloride 107 Carbon Dioxide 24.0 Anion Gap 8 BUN 48 H Creatinine 3.06 H Estim Creat Clear Calc 11.82 Est GFR (MDRD) Af Amer 19 L Est GFR (MDRD) Non-Af 15 L BUN/Creatinine Ratio 15.7 Glucose 87 Calcium 7.7 L Total Bilirubin 0.50 AST 38 H ALT 15 Alkaline Phosphatase 136 H Total Protein 5.0 L Albumin 1.4 L Globulin 3.6 Albumin/Globulin Ratio 0.4 L Fluid Source Fluid Color Fluid Appearance Fluid WBC Fluid RBC Fluid Tot Cell Count Fld Polynuclear WBCs # Fld Polynuclear WBCs % Fluid Mononuclear WBCs Fld Mononuclear WBCs % Fluid Neutrophils Fluid Lymphocytes Fluid Monocytes Fluid Other Cells Fl Pathologist Comment Fluid Glucose Fluid Total Protein Fluid LDH Fluid Comment 2 POC Glucose 119 H 95 12/03/20 11:54 Sodium Potassium Chloride Carbon Dioxide Anion Gap BUN Creatinine Estim Creat Clear Calc Est GFR (MDRD) Af Amer Est GFR (MDRD) Non-Af BUN/Creatinine Ratio Glucose Calcium Total Bilirubin AST ALT Alkaline Phosphatase Total Protein Albumin Globulin Albumin/Globulin Ratio Fluid Source Fluid Color Fluid Appearance Fluid WBC Fluid RBC Fluid Tot Cell Count Fld Polynuclear WBCs # Fld Polynuclear WBCs % Fluid Mononuclear WBCs Fld Mononuclear WBCs % Fluid Neutrophils Fluid Lymphocytes Fluid Monocytes Fluid Other Cells Fl Pathologist Comment Fluid Glucose Fluid Total Protein Fluid LDH Fluid Comment 2 POC Glucose 137 H Micro: Microbiology 11/27/20 16:15 Blood Culture (Wb) - Anticubital Right Blood Culture - Final No growth in 5 days. 11/27/20 16:25 Blood Culture (Wb) - Anticubital Left Blood Culture - Final No growth in 5 days. 11/27/20 15:10 Urine Catheter - Krueger Urine Culture - Final Escherichia coli 11/27/20 20:00 Stool Stool Occult Blood (BONI) - Final Occult Blood Positive 11/27/20 13:50 Nasal Secretion SARS-CoV-2 Antigen (Rapid) - Final Radiography Diagnostic Testing: Radiology Impression Paracentesis Ultrasound 12/02/20 05:00 IMPRESSION: Ultrasound guided paracentesis. Electronically Signed: Arnulfo Ahmadi MD at 14:57 EDT , Service support , Physical Exam Narrative See subjective. Const alert, oriented x3 and no apparent distress HEENT head/scalp atraumatic and moist oral mucous membranes Head and Scalp: normocephalic Eyes EOMs intact bilaterally Neck no lymphadenopathy, supple and no JVD Resp normal respiratory effort and no use of accessory muscles Cardio regular rate, regular rhythm, no murmurs and no JVD GI normal to inspection, nondistended, normoactive bowel sounds, soft to palpation and non-tender Extremity normal to inspection and full ROM Skin no rashes or lesions noted, no wounds and no jaundice Neuro CN's II-XII intact bilaterally Psych affect normal Assessment & Plan Assessment/Plan (1) Severe sepsis: Status: Acute Code(s): A41.9 - Sepsis, unspecified organism; R65.20 - Severe sepsis without septic shock (2) Ascites: Status: Chronic Code(s): R18.8 - Other ascites (3) Cirrhosis of liver: Status: Ruled-out Code(s): K74.60 - Unspecified cirrhosis of liver Qualifiers: Ascites presence: with ascites Hepatic cirrhosis type: unspecified hepatic cirrhosis Qualified Code(s): K74.60 - Unspecified cirrhosis of liver; R18.8 - Other ascites (4) GI bleed: Status: Resolved Code(s): K92.2 - Gastrointestinal hemorrhage, unspecified Qualifiers: GI bleed type/associated pathology: unspecified gastrointestinal hemorrhage type Qualified Code(s): K92.2 - Gastrointestinal hemorrhage, unspecified (5) Dysphagia: Status: Acute Code(s): R13.10 - Dysphagia, unspecified (6) DURAN (acute kidney injury): Status: Acute Code(s): N17.9 - Acute kidney failure, unspecified Plan: Patient reports no change or progression of symptoms from yesterday. Denies chest pain, shortness of breath, palpitations, fever, chills, N/V/D. Vital signs stable and patient is afebrile. Currently awaiting discharge to [facility] pending insurance approval. retail advertising sales manager spoke to patient CHOLO, and it was decided that the hospice/palliative care discussion would take place while the patient was at the jail facility as to not overwhelm her with decisions. Continue Lasix, elijah wraps to legs, Cefdinir, trend INR, CBC, CMP and LDH. Documented by User: Dr. Ayesha Cerna MD 12/03/20 15:31 Objective Data Lab / Micro Data Result Diagrams: 12/02/20 05:45 12/03/20 06:50 Visit Charges Inpatient E&M: 13371 Subs Hosp L2 Addendum Patient seen and examined. She had no complaints this morning apart from saying that she was itching all over. She was put on Paxil for itching but it was not helping. She is awaiting discharge to care home. She has remained hemodynamically stable. O/E Const alert, oriented x3 and no apparent distress HEENT head/scalp atraumatic Head and Scalp: normocephalic Eyes EOMs intact bilaterally Neck no lymphadenopathy, supple and no JVD Resp normal respiratory effort and no retractions Cardio regular rate, regular rhythm, no murmurs and no rub GI Palpation: firm, tender and tense ascites Extremity full ROM Skin no rashes or lesions noted, no wounds and no jaundice, skin of LEs dry Neuro CN's II-XII intact bilaterally Psych affect normal We will start patient on p.o. Benadryl to help with itching. Currently on cefdinir. [facility] to jail facility pending pre-CERT. To have palliative care consult as well since jail facility. Rest as per Jose Kasper PA-C's notes which I have reviewed and endorsed. Inpatient E&M: [id number] Subs Hosp L2
[2020-12-03 16:51] LABS: Bedside Glucose 95 mg/dL (70-110)
[2020-12-03 21:51] LABS: Bedside Glucose 143 mg/dL (70-110)
[2020-12-04] VITALS (8 sets, daily range): BP systolic 96–118; BP diastolic 41–51; PULSE 80–93; RESP 16–18; TEMP 36.5–36.8; O2SAT 96–98
[2020-12-04 07:06] LABS: Bedside Glucose 91 mg/dL (70-110)
[2020-12-04] MEDS: Potassium Chloride Oral Tablet 20 MEQ PO (08:37)
--- NOTE | 2020-12-04 08:40 | CASEMGMT ---
SW spoke with patient this am and told her she has to do therapy. The only reason her insurance would approve her to go to the penitentiary is if she does therapy. Patient told SW she did therapy yesterday. SW told her she refused when they first tried and then when they came back she refused to get out of bed to do therapy. She said that is not true and SW needs to check the records. SW told her again when therapy comes to see you today you cannot refuse therapy. She told SW she has been doing therapy and to check the records. (SW has spoken directly to therapy and patient has been refusing. She refused all , Wednesday therapy had to come back twice and push to get patient to do therapy. Wednesday she refused the first time and then the second time patient was in bed and refused to get out of bed.) Shy Rose TECHNICAL SUPERVISOR ANA
[2020-12-04] MEDS: PARoxetine 10 MG Tablet PO (08:48)
[2020-12-04] MEDS: Pantoprazole Sodium 40 MG Tablet PO ×2 (08:48→21:27)
[2020-12-04] MEDS: Cefdinir 300 MG Capsule PO (08:48)
[2020-12-04 11:30] LABS: Bedside Glucose 112 mg/dL (70-110)
--- NOTE | 2020-12-04 12:01 | CASEMGMT ---
GENIE faxed patient's PT/OT notes from this am to [facility]. GENIE called Dilcia and asked her to please make sure insurance gets those notes as it shows that she participated in therapy today. Shy Rose BIOPROCESS DEVELOPMENT ENGINEER ANA
--- NOTE | 2020-12-04 15:35 | PCM.PN.HOSP ---
Documented by User: Jose SIMMS 12/04/20 15:38 Subjective Subjective: Patient is an 85-year-old female comfortably resting in bed, alert and oriented x3. Patient understands that her current hospital admission and discharge is awaiting insurance approval. Patient understands and is agreeable to all. Denies chest pain, shortness of breath, palpitations, fever, chills, N/V/D. Objective Data Objective Data Vital Signs: Vital Signs Temp Pulse Resp BP Pulse Ox 97.7 F L 92 18 107/44 L 96 12/04/20 15:25 12/04/20 15:25 12/04/20 15:25 12/04/20 15:25 12/04/20 15:25 Oxygen Flow Rate (L/min) [2] 16 Oxygen Delivery Method [3] Room Air Oxygen Delivery Method [2] Room Air Oxygen Delivery Method [1 ( Room Air Initial Baseline)] Oxygen Delivery Method Room Air Weight: 145 lb 1.027 oz Body Mass Index (BMI) 26.9 Finger Stick Blood Glucose 130 Intake & Output: Intake and Output for Last 24 Hours 12/02/20 12/03/20 12/04/20 23:59 23:59 23:59 Intake Total 860 / 1100 440 / 640 720 / 720 Output Total 6950 / 6950 150 / 150 250 / 250 Balance -6090 / -5850 290 / 490 470 / 470 Lab / Micro Data Result Diagrams: 12/02/20 05:45 12/03/20 06:50 Labs: Laboratory Results - last 24 hr 12/03/20 12/03/20 12/04/20 16:41 21:39 06:57 POC Glucose 95 143 H 91 12/04/20 11:00 POC Glucose 112 H Micro: Microbiology 11/27/20 16:15 Blood Culture (Wb) - Anticubital Right Blood Culture - Final No growth in 5 days. 11/27/20 16:25 Blood Culture (Wb) - Anticubital Left Blood Culture - Final No growth in 5 days. 11/27/20 15:10 Urine Catheter - Krueger Urine Culture - Final Escherichia coli 11/27/20 20:00 Stool Stool Occult Blood (BONI) - Final Occult Blood Positive 11/27/20 13:50 Nasal Secretion SARS-CoV-2 Antigen (Rapid) - Final Physical Exam Const alert, oriented x3 and no apparent distress HEENT head/scalp atraumatic and moist oral mucous membranes Head and Scalp: normocephalic Eyes EOMs intact bilaterally Neck no lymphadenopathy, supple and no JVD Resp normal respiratory effort, no use of accessory muscles and clear to auscultation bilaterally Cardio regular rate, regular rhythm, no murmurs and no JVD GI normal to inspection, nondistended, normoactive bowel sounds, soft to palpation and non-tender Extremity normal to inspection Skin no rashes or lesions noted, no wounds and skin turgor normal Neuro CN's II-XII intact bilaterally Psych affect normal Assessment & Plan Assessment/Plan (1) Severe sepsis: (2) Ascites: (3) Cirrhosis of liver: QUALIFIERS: Ascites presence: with ascites Hepatic cirrhosis type: unspecified hepatic cirrhosis Qualified Code(s): K74.60 - Unspecified cirrhosis of liver; R18.8 - Other ascites (4) GI bleed: QUALIFIERS: GI bleed type/associated pathology: unspecified gastrointestinal hemorrhage type Qualified Code(s): K92.2 - Gastrointestinal hemorrhage, unspecified (5) Dysphagia: (6) DURAN (acute kidney injury): PLAN: Patient reports no change or progression of symptoms from yesterday. Denies chest pain, shortness of breath, palpitations, fever, chills, N/V/D. Vital signs stable and patient is afebrile. Currently awaiting discharge to [facility] pending insurance approval. behavioral health case manager spoke to patient CHOLO, and it was decided that the hospice/palliative care discussion would take place while the patient was at the assisted facility as to not overwhelm her with decisions. Continue Lasix, elijah wraps to legs, Cefdinir, trend INR, CBC, CMP and LDH. Patient seen by Jose Kasper PA-C, under the supervision of Dr. Cerna. Documented by User: Dr. Ayesha Cerna MD 12/04/20 16:37 Objective Data Lab / Micro Data Result Diagrams: 12/02/20 05:45 12/03/20 06:50 Visit Charges Inpatient E&M: [id number] Subs Hosp L2 Addendum Patient seen and examined. She still states her itching is present. She has no other complaints. Review of symptoms otherwise negative. She is awaiting pre-CERT to go to SNF. She has remained hemodynamically stable. O/E: Const alert, oriented x3 and no apparent distress HEENT head/scalp atraumatic Head and Scalp: normocephalic Eyes EOMs intact bilaterally Neck no lymphadenopathy, supple and no JVD Resp normal respiratory effort and no retractions Cardio regular rate, regular rhythm, no murmurs and no rub GI Palpation: firm, tender and tense ascites Extremity full ROM Skin no rashes or lesions noted, no wounds and no jaundice, skin of LEs dry and flaky Neuro CN's II-XII intact bilaterally Psych affect normal Continue p.o. Benadryl for itching. Awaiting pre-CERT to go to SNF. To have palliative care consult when she gets to the assisted facility. Rest as per Jose Kasper PA-C's note , which I have reviewed and endorsed. Inpatient E&M: [id number] Subs Hosp L2
--- NOTE | 2020-12-04 16:08 | CASEMGMT ---
GENIE left a message for Dilcia checking to see if they have heard from insurance. GENIE will leave a green sheet on patient's chart. GENIE also spoke with Clayton from [facility] office and let her know we are still waiting on insurance. Plan: d/c to [place] pending pre-cert. Shy Rose INTERNAL CONTROL MANAGER ANA
[2020-12-04 16:55] LABS: Bedside Glucose 136 mg/dL (70-110)
[2020-12-05 00:21] LABS: Bedside Glucose 116 mg/dL (70-110)
[2020-12-05] MEDS: DiphenhydrAMINE 25 MG Capsule PO (02:43)
[2020-12-05 03:00] VITALS: PULSE 94
[2020-12-05 03:20] VITALS: BP 102/48; PULSE 87; RESP 16; TEMP 36.7; O2SAT 97
[2020-12-05 06:39] VITALS: PULSE 96
[2020-12-05 06:46] LABS: Bedside Glucose 109 mg/dL (70-110)
[2020-12-05 07:11] LABS: Absolute Lymphocyte Count 1.63 X10^3/uL (0.83-4.51); Absolute Neutrophil Count 4.9 X10^3/uL (2.0-7.7); Basophil# 0.11 X10^3/uL; Basophil% 0.9 % (0-1); Eosinophils% 35.4 % (0-5); Hematocrit 32.5 % (37-47); Hemoglobin 10.6 g/dL (12.0-15.0); Lymphocyte # 1.63 X10^3/ul (0.83-4.51); Lymphocyte % 13.1 % (19-41); Mean Corp Hgb Conc 32.6 g/dL (32-36); Mean Corpuscular Hgb 27.5 pg (27.0-32.0); Mean Corpuscular Volume 84.4 fL (81-99); Mean Platelet Vol. 10.1 fl (6.2-12.0); Monocyte# 1.32 X10^3/uL; Monocyte% 10.6 % (0-10); NRBC Flagged by Analyzer 0 % (0-5); Neutrophil % 39.6 % (47-70); POSITIVE DIFFERENTIAL YES; Platelet Count 154 K/mm3 (150-450); RBC Distribution Width CV 18.6 % (11.6-14.6); RBC Distribution Width SD 57.3 fl (35.1-43.9); Red Blood Count 3.85 M/mm3 (4.2-5.4); White Blood Count 12.4 K/mm3 (4.4-11.0)
[2020-12-05 07:16] LABS: Differential Indicated SCAN CRITERIA MET; Eosinophil# 4.39 X10^3/uL
[2020-12-05 07:45] LABS: Anion Gap 9 (5-15); BUN 51 mg/dL (7-18); BUN/Creat Ratio 16.6 RATIO (10-20); Chloride 106 mmol/L (98-107); Creatinine, Serum 3.07 mg/dL (0.55-1.02); EST Glomerular Filtration Rate 15 mL/min (>60); Est Glom Filt Rate - Afr Amer 19 mL/min (>60); Estimated Creatinine Clearance 11.78 ml/min; Glucose 100 mg/dL (74-106); Potassium 4.5 mmol/L (3.5-5.1); Sodium Level 139 mmol/L (136-145)
[2020-12-05 08:03] LABS: Differential Comment SCANNED
[2020-12-05] MEDS: Potassium Chloride Oral Tablet 20 MEQ PO (08:35)
[2020-12-05 08:39] VITALS: BP 106/42; PULSE 94; RESP 16; TEMP 37.3; O2SAT 97
[2020-12-05] MEDS: PARoxetine 10 MG Tablet PO (08:42)
[2020-12-05] MEDS: Cefdinir 300 MG Capsule PO (08:42)
[2020-12-05] MEDS: Pantoprazole Sodium 40 MG Tablet PO (08:42)
--- NOTE | 2020-12-05 11:06 | CASEMGMT ---
Insurance finally approved patient to go to [place]. SW notified patient, executive secretary social welfare, physician, and SHAKE CUTTER. Shy Rose MSW ANA
--- NOTE | 2020-12-05 11:10 | TREXTCAR_ITS ---
Documented by User: Mery Acevedo NP, [employer]LY[employer] 12/05/20 12:33 Diet 12/01/20 08:09 Diet: Regular - General Food consistency:: Soft & Bite Sized Liquid Consistency:: Regular/Thin Type of Dietary Supplement:: Magic Cup Dessert Is pt able to select menu?: Yes Diet Comments: verbal cues for 2nd swallow, meds crushed Routine Orders/Code Status Enema Type: Fleetz Enema Frequency: Daily PRN Suppository Type: Dulcolax 10mg Suppository Frequency: Daily PRN Routine Lab Work: - (Weekly CBC, BMP) Code Status: DNRCC-A (No intubation) Wound(s) Bilateral lower legs: Wound Type: weeping Suggestions for Active Care Change Position every (hours): 2 Times a day to sit in chair: 3 Therapies Weight Bearing: Full weight bearing Physical Therapy: Eval and Treat Occupational Therapy: Eval and Treat Speech Therapy: Eval and Treat Problem/Diagnosis (1) Severe sepsis: Status: Acute Comment: Secondary to E. coli UTI (2) Ascites: Status: Chronic (3) Cirrhosis of liver: Status: Ruled-out (4) GI bleed: Status: Resolved (5) Dysphagia: Status: Acute (6) DURAN (acute kidney injury): Status: Acute Allergies/Procedures Done in Hospital Allergies Penicillins [PCN] Allergy (Verified 11/27/20 12:54) Other Procedures: 2-D Echocardiogram, Paracentesis and - (Modified barium swallow) Type of Care/Length of Stay Estimated LOS: More Than 30 Days Type of Care Needed: Skilled Rehab Potential: Fair Prognosis: Fair Additional Orders/Day of Discharge Additional Orders: Please have palliative care see pt at group home facility H&P will serve as current which was dated: 11/27/20 Day of Discharge: 12/05/20 Dietary and Speech Recommendations Dietitian Recommendations/Changes: Continue regular diet. Will provide magic cup w/ lunch, 120mL ensure enlive w/ breakfast and dinner. Discharge Plan Admission Admit Date/Time: 11/27/20 17:04 Attending Provider: Ayesha Cerna Consulting Providers: Timoteo Chisholm ; Sung Lawrence ; Amber Hood ANALY[employer] Discharge Orders/Prescriptions Prescriptions: New acetaminophen [Tylenol] 325 mg Tablet 650 mg PO Q6H PRN PRN (Reason: Pain Score 1-10/Temp > 100.7 F) Qty: 0 RF: 0 paroxetine HCl 10 mg Tablet 10 mg PO DAILY Qty: 0 RF: 0 ammonium lactate 12 % Lotion 1 applic topical TID Qty: 0 RF: 0 pantoprazole 40 mg Tablet,Delayed Release (Dr/Ec) 40 mg PO BID Qty: 0 RF: 0 diphenhydramine HCl [Banophen] 25 mg Capsule 25 mg PO BID PRN PRN (Reason: Itching) Qty: 0 RF: 0 lactulose 20 gram/30 mL Solution 20 g PO BID Qty: 0 RF: 0 Referrals / Follow Up: Jasson Ramos Chi, MD [COURTESY STAFF PHYSICIAN] - In 1 Week Bennie Waterman MD [NON-STAFF] - Within 1 Month (GI referral for scope/anemia/cirrhosis) Disposition Disposition (needs filled in before D/C Order can be placed): Assisted Facility Documented by User: Dr. Ayesha Cerna MD 12/05/20 16:39 Allergies/Procedures Done in Hospital Allergies Penicillins [PCN] Allergy (Verified 11/27/20 12:54) Other Discharge Plan Admission Admit Date/Time: 11/27/20 17:04 Attending Provider: Ayesha Cerna Consulting Providers: Timoteo Chisholm ; Sung Lawrence ; Amber Hood ANA[employer] Discharge Orders/Prescriptions Prescriptions: New acetaminophen [Tylenol] 325 mg Tablet 650 mg PO Q6H PRN PRN (Reason: Pain Score 1-10/Temp > 100.7 F) Qty: 0 RF: 0 paroxetine HCl 10 mg Tablet 10 mg PO DAILY Qty: 0 RF: 0 ammonium lactate 12 % Lotion 1 applic topical TID Qty: 0 RF: 0 pantoprazole 40 mg Tablet,Delayed Release (Dr/Ec) 40 mg PO BID Qty: 0 RF: 0 diphenhydramine HCl [Banophen] 25 mg Capsule 25 mg PO BID PRN PRN (Reason: Itching) Qty: 0 RF: 0 lactulose 20 gram/30 mL Solution 20 g PO BID Qty: 0 RF: 0 Referrals / Follow Up: Jasson Ramos Chi, MD [COURTESY STAFF PHYSICIAN] - In 1 Week Bennie Waterman MD [NON-STAFF] - Within 1 Month (GI referral for scope/anemia/cirrhosis) Disposition Disposition (needs filled in before D/C Order can be placed): Assisted Facility
[2020-12-05 11:20] LABS: Bedside Glucose 113 mg/dL (70-110)
--- NOTE | 2020-12-05 11:44 | CASEMGMT ---
GENIE faxed orders to [facility]. Awaiting COVID test results before transport arranged. Shy Rose [employer]ATH[employer]EVELER
--- NOTE | 2020-12-05 12:16 | PCM.DC.SUM ---
Documented by User: Mery Acevedo NP, B[employer]ING P[employer]ER-C 12/05/20 12:34 Providers Date of Admission: 11/27/20 Consultations 11/27/20 19:26 Consult: General Surgery Routine Consulting Provider: [facility] Reason for Consult: Acute severe anemia, notified by ER physician EMERGENT Consult: No MD Notified: Yes Date Notified:: 11/27/20 Time Notified: 17:05 Method of Notification: Page Comments:: ed physician notified Consult: Quality Assurance Qa Lab Technician / Pulmonary Medicine Routine Consulting Provider: [facility] Reason for Consult: Severe sepsis, severe anemia EMERGENT Consult: No MD Notified: Yes Date Notified:: 11/27/20 Time Notified: 17:10 Method of Notification: Text Reason For Visit: SEVERE SEPSIS, SEVERE ANEMIA, DURAN Diagnosis Discharge Diagnosis (1) Severe sepsis: Status: Acute Code(s): A41.9 - Sepsis, unspecified organism; R65.20 - Severe sepsis without septic shock (2) Ascites: Status: Chronic Code(s): R18.8 - Other ascites (3) Cirrhosis of liver: Status: Ruled-out Code(s): K74.60 - Unspecified cirrhosis of liver Qualifiers: Ascites presence: with ascites Hepatic cirrhosis type: unspecified hepatic cirrhosis Qualified Code(s): K74.60 - Unspecified cirrhosis of liver; R18.8 - Other ascites (4) GI bleed: Status: Resolved Code(s): K92.2 - Gastrointestinal hemorrhage, unspecified Qualifiers: GI bleed type/associated pathology: unspecified gastrointestinal hemorrhage type Qualified Code(s): K92.2 - Gastrointestinal hemorrhage, unspecified (5) Dysphagia: Status: Acute Code(s): R13.10 - Dysphagia, unspecified (6) DURAN (acute kidney injury): Status: Acute Code(s): N17.9 - Acute kidney failure, unspecified Medications at Discharge Home Medications acetaminophen [Tylenol] 650 mg PO Q6H PRN PRN #0 tab 12/05/20 ammonium lactate 1 applic TOPICAL TID #0 g 12/05/20 diphenhydramine HCl [Banophen] 25 mg PO BID PRN PRN #0 cap 12/05/20 lactulose 20 g PO BID #0 ml 12/05/20 pantoprazole 40 mg PO BID #0 tab 12/05/20 paroxetine HCl 10 mg PO DAILY #0 tab 12/05/20 Hospital Course Operations None Procedures 2-D Echocardiogram, Paracentesis and - (Modified barium swallow) Summary of Care Provided Minutes Spent on Discharge: 35 Hospital Course: Patient is a 85-year-old female admitted 11/27/2020 due to difficulty swallowing and weakness. 1. Severe sepsis secondary to acute E. coli cystitis-improved. Completed course of antibiotics. Omnicef discontinued. 2. Acute kidney injury versus worsening CKD, currently CKD stage IV-only prior labs for comparison are from 2014. Creatinine stable. Continue weekly BMP and outpatient follow-up with nephrology. 3. Acute on chronic anemia-stable following PRBC. Continue PPI at discharge as fecal occult blood likely due to gastritis. Will need outpatient follow-up with GI for cirrhosis/dysphagia. 4. Hyperammonemia/liver cirrhosis-paracentesis 12/02/2020 with 6.7 L fluid removed. Continue lactulose. Lasix on hold due to 5. Dysphagia-continue dietary modifications per speech therapy recommendations. Speech therapy to follow at SNF hypotension, may resume Lasix 20 mg daily at SNF if patient is able to tolerate. 6. History of type 2 diabetes mellitus-hemoglobin A1c less than 6% Patient seen and examined prior to discharge. Physical assessment as noted above. Patient is stable for discharge with follow up recommendations as noted above. SNF at discharge. Palliative consult at SNF. This patient was seen by CHRISSY Laws under the supervision of Dr. Cerna. Physical Exam Const alert, oriented x3 and no apparent distress Orientation / Consciousness: awake, oriented to person, oriented to place and oriented to time Nutritional Appearance: cachectic HEENT normocephalic and moist oral mucous membranes Eyes PERRL, EOMs intact bilaterally and conjunctivae normal Neck no lymphadenopathy Resp normal respiratory effort and clear to auscultation bilaterally Cardio regular rate, regular rhythm and no murmurs Peripheral Pulses: pulses 2+ throughout GI normal to inspection, nondistended, normoactive bowel sounds, non-tender and non-distended Extremity normal to inspection Skin no rashes or lesions noted Skin Narrative: Upper extremity scattered scabbing due to scratching/picking. Lesions: no lesions Rashes: no rashes Trauma: no lacerations or abrasions Neuro oriented x3 Sensorium / Orientation: awake and alert Psych affect normal ABG / Lab / Microbiology Data Result Diagrams: 12/05/20 06:47 12/05/20 06:47 Laboratory: Laboratory Results - last 24 hr 12/04/20 12/04/20 12/05/20 16:28 21:21 06:40 WBC RBC Hgb Hct MCV MCH MCHC RDW Std Deviation RDW Coeff of Arielle Plt Count MPV Immature Gran % (Auto) Neut % (Auto) Lymph % (Auto) Cecil % (Auto) Eos % (Auto) Baso % (Auto) Absolute Neuts (auto) Absolute Lymphs (auto) Nucleated RBC % Differential Comment Sodium Potassium Chloride Carbon Dioxide Anion Gap BUN Creatinine Estim Creat Clear Calc Est GFR (MDRD) Af Amer Est GFR (MDRD) Non-Af BUN/Creatinine Ratio Glucose Calcium POC Glucose 136 H 116 H 109 12/05/20 12/05/20 12/05/20 06:47 06:47 11:06 WBC 12.4 H RBC 3.85 L Hgb 10.6 L Hct 32.5 L MCV 84.4 MCH 27.5 MCHC 32.6 D RDW Std Deviation 57.3 H RDW Coeff of Arielle 18.6 H Plt Count 154 MPV 10.1 Immature Gran % (Auto) 0.400 Neut % (Auto) 39.6 L Lymph % (Auto) 13.1 L Cecil % (Auto) 10.6 H Eos % (Auto) 35.4 H Baso % (Auto) 0.9 Absolute Neuts (auto) 4.9 Absolute Lymphs (auto) 1.63 Nucleated RBC % 0 Differential Comment SCANNED Sodium 139 Potassium 4.5 Chloride 106 Carbon Dioxide 24.0 Anion Gap 9 BUN 51 H Creatinine 3.07 H Estim Creat Clear Calc 11.78 Est GFR (MDRD) Af Amer 19 L Est GFR (MDRD) Non-Af 15 L BUN/Creatinine Ratio 16.6 Glucose 100 Calcium 8.0 L POC Glucose 113 H Microbiology: Microbiology 12/05/20 11:30 SARS-CoV-2 Antigen (Rapid) - Final Interface Orders Microbiology 12/05/20 11:30 Interface Orders SARS-CoV-2 Antigen (Rapid) - Final 11/27/20 16:15 Blood Culture (Wb) - Anticubital Right Blood Culture - Final No growth in 5 days. 11/27/20 16:25 Blood Culture (Wb) - Anticubital Left Blood Culture - Final No growth in 5 days. 11/27/20 15:10 Urine Catheter - Krueger Urine Culture - Final Escherichia coli 11/27/20 20:00 Stool Stool Occult Blood (BONI) - Final Occult Blood Positive 11/27/20 13:50 Nasal Secretion SARS-CoV-2 Antigen (Rapid) - Final Meaningful Use Info Meaningful Use Diagnoses (Choose all that apply): None applicable Discharge Plan Admission Admit Date/Time: 11/27/20 17:04 Attending Provider: Ayesha Cerna Consulting Providers: Timoteo Chisholm ; Sung Lawrence ; Amber Hood BASTING PULLER Discharge Orders/Prescriptions Prescriptions: New acetaminophen [Tylenol] 325 mg Tablet 650 mg PO Q6H PRN PRN (Reason: Pain Score 1-10/Temp > 100.7 F) Qty: 0 RF: 0 paroxetine HCl 10 mg Tablet 10 mg PO DAILY Qty: 0 RF: 0 ammonium lactate 12 % Lotion 1 applic topical TID Qty: 0 RF: 0 pantoprazole 40 mg Tablet,Delayed Release (Dr/Ec) 40 mg PO BID Qty: 0 RF: 0 diphenhydramine HCl [Banophen] 25 mg Capsule 25 mg PO BID PRN PRN (Reason: Itching) Qty: 0 RF: 0 lactulose 20 gram/30 mL Solution 20 g PO BID Qty: 0 RF: 0 Referrals / Follow Up: Jasson Ramos Chi, MD [COURTESY STAFF PHYSICIAN] - In 1 Week Bennie Waterman MD [NON-STAFF] - Within 1 Month (GI referral for scope/anemia/cirrhosis) Disposition Disposition (needs filled in before D/C Order can be placed): Residential Facility Documented by User: Dr. Ayesha Cerna MD 12/05/20 16:53 Providers Date of Admission: 11/27/20 Reason For Visit: SEVERE SEPSIS, SEVERE ANEMIA, DURAN Medications at Discharge Home Medications acetaminophen [Tylenol] 650 mg PO Q6H PRN PRN #0 tab 12/05/20 ammonium lactate 1 applic TOPICAL TID #0 g 12/05/20 diphenhydramine HCl [Banophen] 25 mg PO BID PRN PRN #0 cap 12/05/20 lactulose 20 g PO BID #0 ml 12/05/20 pantoprazole 40 mg PO BID #0 tab 12/05/20 paroxetine HCl 10 mg PO DAILY #0 tab 12/05/20 ABG / Lab / Microbiology Data Result Diagrams: 12/05/20 06:47 12/05/20 06:47 Discharge Plan Admission Admit Date/Time: 11/27/20 17:04 Attending Provider: Ayesha Cerna Consulting Providers: Timoteo Chisholm ; Sung Lawrence ; Amber Hood BASTING PULLER Discharge Orders/Prescriptions Prescriptions: New acetaminophen [Tylenol] 325 mg Tablet 650 mg PO Q6H PRN PRN (Reason: Pain Score 1-10/Temp > 100.7 F) Qty: 0 RF: 0 paroxetine HCl 10 mg Tablet 10 mg PO DAILY Qty: 0 RF: 0 ammonium lactate 12 % Lotion 1 applic topical TID Qty: 0 RF: 0 pantoprazole 40 mg Tablet,Delayed Release (Dr/Ec) 40 mg PO BID Qty: 0 RF: 0 diphenhydramine HCl [Banophen] 25 mg Capsule 25 mg PO BID PRN PRN (Reason: Itching) Qty: 0 RF: 0 lactulose 20 gram/30 mL Solution 20 g PO BID Qty: 0 RF: 0 Referrals / Follow Up: Jasson Ramos Chi, MD [COURTESY STAFF PHYSICIAN] - In 1 Week Bennie Waterman MD [NON-STAFF] - Within 1 Month (GI referral for scope/anemia/cirrhosis) Disposition Disposition (needs filled in before D/C Order can be placed): Residential Facility Addendum Addendum: Patient seen by Mery Acevedo B[employer]ING P[employer]ER-C under my supervision. She is she presented to the ED with a complaint of difficulty swallowing and weakness. She also complained of coughing up of blood clot about a week prior to admission. Patient was hypotensive on admission but this improved with hydration of IV fluids. Creatinine was 2.55 and lactic acid was 3.1. Urinalysis was positive for UTI and CT of the abdomen and pelvis without contrast showed diffuse ascites and findings suggestive of liver cirrhosis. She was admitted to be managed for severe sepsis due to UTI, severe anemia and acute renal failure. Hemoglobin was 6.7. She was started on IV Rocephin and hydrated with IV fluids. She was transfused with 1 unit of packed red blood cells and started on PPI and general surgery consulted. She was also started on lactulose on account of cirrhosis and elevated ammonia levels. She was transfused with 3 units of packed red blood cells. She was subsequently transferred out of the ICU. 2D echo done showed EF of 60 to 65% with stage I diastolic dysfunction and mild pulmonary hypertension and ultrasound of the liver was not suggestive of cirrhosis. She was switched to p.o. cefdinir. Patient was scheduled as needing SNF. She obtained pre-CERT and was discharged to a assisted facility on 12/05/2020. She was open to palliative care evaluation, but her POA decided that in order not to overwhelm patient, it would be better for patient to have palliative care evaluation whilst at the SNF. She is to follow up with her PCP in 1-2 weeks. Patient seen and examined prior to discharge. She complains of itching all over. Review of symptoms otherwise negative. Labs and vitals reviewed. Medications reviewed and reconciled. O/E Const alert, oriented x3 and no apparent distress HEENT head/scalp atraumatic Head and Scalp: normocephalic Eyes EOMs intact bilaterally Neck no lymphadenopathy, supple and no JVD Resp normal respiratory effort and no retractions Cardio regular rate, regular rhythm, no murmurs and no rub GI Palpation: firm, tender and tense ascites Extremity full ROM Skin no rashes or lesions noted, no wounds and no jaundice, skin of LEs dry Neuro CN's II-XII intact bilaterally Psych affect normal Rest as per Mery Acevedo BASTING PULLER-C's note, which I have reviewed and endorsed. Visit Charges Inpatient E&M: [id number] Disch Hosp
--- NOTE | 2020-12-05 12:20 | CASEMGMT ---
Negative COVID test came back. GENIE arranged for patient for patient to get picked up at 1400 via wheelchair van. GENIE notified RN, patient, left message for Dilcia at [facility]. GENIE also called Clayton at [facility] and let her know. She said she will be in to see patient in a few minutes. PASRR completed in the event patient stays longer than 30 days. Plan: d/c to [facility] under skilled level of care on a PASRR. Physicians transported her via wheelchair van. Shy PEREZ
[2020-12-05 12:42] VITALS: BP 107/50; PULSE 90; RESP 16; TEMP 37.2; O2SAT 96
--- NOTE | 2020-12-05 12:50 | NURSING ---
This RN called and gave report to MANISH Moore at [facility].
[2020-12-06 11:58] LABS: Pathologist Review Reviewed
== END 2020-12-05 14:28 | disposition skilled nursing facility (03) | DRG 871 ==
LOC: ED 16:54 → ICU 17:13 → PCU 11-28 10:19
PROVIDERS: Hospitalist; Internal Medicine; Physician Assistant; Admitting Provider Hospitalist; Emergency Provider Emergency Medicine; Visit Provider Student in an Organized Health Care Education/Training Program
DX: A41.51 Sepsis due to Escherichia coli [E. coli] (principal); K72.00 Acute and subacute hepatic failure without coma; R18.8 Other ascites; K92.2 Gastrointestinal hemorrhage, unspecified; N17.9 Acute kidney failure, unspecified; D62 Acute posthemorrhagic anemia; N18.4 Chronic kidney disease, stage 4 (severe); N30.00 Acute cystitis without hematuria; R65.20 Severe sepsis without septic shock; K74.60 Unspecified cirrhosis of liver; K76.0 Fatty (change of) liver, not elsewhere classified; R13.12 Dysphagia, oropharyngeal phase; E11.22 Type 2 diabetes mellitus with diabetic chronic kidney disease; B96.20 Unspecified Escherichia coli [E. coli] as the cause of diseases classified elsewhere; Z87.891 Personal history of nicotine dependence; Z66 Do not resuscitate; I27.20 Pulmonary hypertension, unspecified
CPT/HCPCS: 36415; 49083; 51702; 71250; 74176; 74230; 76700; 80048; 80053; 80069; 81001; 82140; 82274; 82728; 82945; 82962; 83036; 83550; 83605; 83615; 83690; 83735; 84157; 85014; 85018; 85025; 85610; 85730; 86850; 86900; 86901; 86920; 86922; 87040; 87077; 87086; 87088; 87186; 87426; 88108; 88305; 88313; 89050; 92526; 92611; 93306; 97110; 97162; 97166; 97530; 97535; 97802; 99251; 99285; J7030; J7040; J7050; P9016; A4216; G0463; J0696; J1940; J2405